=== PATIENT | female | born 2000 | race African-American/Black ===

== ENCOUNTER 2020-03-11 13:30 | Inpatient (IN) | payer OTHER, SELFPAY ==
[2020-03-11] MEDS ORDERED: Nalbuphine 10 MG/ML Syringe IVPUSH PRN (15:38)
[2020-03-11] MEDS ORDERED: Ondansetron 4 MG/2 ML SDV IVPUSH PRN (15:38)
[2020-03-11] MEDS ORDERED: Sodium Chloride 0.9% 10 ML Syringe FLUSH PRN (15:38)
[2020-03-11] MEDS ORDERED: Oxytocin/Lactated Ringers 10 UNIT/1,000 ML BAG IV SCH ×2 (15:45)
[2020-03-11] MEDS: Lactated Ringers 1,000 ML IV SCH ×4 (16:12→22:00)
--- NOTE | 2020-03-11 17:03 | PCM.LDHP ---
L&D History of Present Illness - General Date of Service: 03/11/20 Admit Problem/Dx: Patient Status Order with Admit Dx/Problem 03/11/20 14:56 Patient Status [ADT] Routine 03/11/20 15:38 Patient Status [ADT] Routine Admission Diagnosis/Problem Admission Diagnosis/Problem - History of Present Illness Introduction:: 19 year old at 38w4 here with SROM yesterday at 10 am. Clear fluid. No bleeding. No fevers. Contractions q 3 minutes but not feeling all of them. PNC with myself without complications. labs in chart. 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: Musculoskeletal History: Reports: Other (See Below) Other Musculoskeletal History: scoliosis Psychiatric History: Reports: Anxiety Social & Family History - Family History Family Medical History: Noncontributory - Tobacco Use Smoking Status *Q: Never Smoker Second Hand Smoke Exposure: No - Caffeine Use Caffeine Use: Reports: None - Recreational Drug Use Recreational Drug Use: Yes Recreational Drug Type: Reports: Marijuana/Hashish Recreational Drug Use Frequency: Socially H&P Review of Systems - Review of Systems: Review Of Systems: See Below General: Reports: No Symptoms HEENT: Reports: No Symptoms Pulmonary: Reports: No Symptoms Cardiovascular: Reports: No Symptoms Gastrointestinal: Reports: No Symptoms Genitourinary: Reports: No Symptoms Musculoskeletal: Reports: No Symptoms Skin: Reports: No Symptoms Psychiatric: Reports: No Symptoms Neurological: Reports: No Symptoms Hematologic/Lymphatic: Reports: No Symptoms Immunologic: Reports: No Symptoms L&D Exam - Exam Exam: See Below - Vital Signs Vital Signs: Last Vital Signs Temp 36.5 C 03/11/20 14:56 Pulse 79 03/11/20 14:56 Resp 14 03/11/20 14:56 BP 105/65 03/11/20 14:56 Pulse Ox 98 03/11/20 14:56 Weight: 63.957 kg - OB Specific Fundal Height In cm: 38 Contraction Intensity: Mild to Moderate Movement: Active Heart Tones: Present Heart Tones per Min: 145 Heart Rate (FHR) Variability: Moderate (6-25 bmp) Presentation: Vertex - Swain Score Swain Score Cervix Position: Midposition Swain Score Consistency: Soft Swain Score Effacement: 51-70% Swain Score Dilation: 1-2 cm Swain Score Infant's Station: -2 Swain Score Total: 7 - Exam General: Alert, Oriented HEENT: PERRLA, Conjunctiva Clear, EACs Clear, EOMI, Hearing Intact, Mucosa Moist & [place], Nares Patent, Normal Nasal Septum, Posterior Pharynx Clear, TMs Clear Neck: Supple, Trachea Midline Lungs: Clear to Auscultation, Normal Respiratory Effort Cardiovascular: Regular Rate, Regular Rhythm GI/Abdominal Exam: Normal Bowel Sounds, Soft, Non-Tender, No Organomegaly, No Distention, No Abnormal Bruit, No Mass, Pelvis Stable Back Exam: Normal Inspection, Full Range of Motion Extremities: Normal Inspection, Normal Range of Motion, Non-Tender, No Pedal Edema, Normal Capillary Refill Skin: Warm, Dry, Intact Neurological: Cranial Nerves Intact, Reflexes Equal Bilateral Psychiatric: Alert, Normal Affect, Normal Mood - Patient Data Lab Results Last 24 hrs: Laboratory Results - last 24 hr 03/11/20 03/11/20 03/11/20 Range/Units 14:40 14:40 16:04 WBC 24.48 H (3.98-10.04) K/mm3 RBC 4.83 (3.98-5.22) M/mm3 Hgb 14.1 (11.2-15.7) gm/dl Hct 41.8 (34.1-44.9) % MCV 86.5 (79.4-94.8) fl MCH 29.2 (25.6-32.2) pg MCHC 33.7 (32.2-35.5) g/dl RDW Std Deviation 41.1 (36.4-46.3) fL Plt Count 226 (182-369) K/mm3 MPV 10.2 (9.4-12.3) fl Neut % (Auto) 87.1 H (34.0-71.1) % Lymph % (Auto) 6.3 L (19.3-51.7) % [place] % (Auto) 5.9 (4.7-12.5) % Eos % (Auto) 0.1 L (0.7-5.8) Baso % (Auto) 0.2 (0.1-1.2) % Neut # (Auto) 21.34 H (1.56-6.13) K/mm3 Lymph # (Auto) 1.55 (1.18-3.74) K/mm3 [place] # (Auto) 1.44 H (0.24-0.36) K/mm3 Eos # (Auto) 0.02 L (0.04-0.36) K/mm3 Baso # (Auto) 0.04 (0.01-0.08) K/mm3 Urine Color Yellow (Yellow) Urine Appearance Slt cloudy H (Clear) Urine pH 6.0 (5.0-8.0) Ur Specific [place] > or = 1.030 (1.005-1.030) Urine Protein Trace H (Negative) Urine Glucose (UA) Negative (Negative) Urine Ketones Negative (Negative) Urine Occult Blood 2+ H (Negative) Urine Nitrite Negative (Negative) Urine Bilirubin Negative (Negative) Urine Urobilinogen 1.0 (0.2-1.0) Ur Leukocyte Esterase Trace H (Negative) Urine RBC 10-20 H (0-5) /hpf Urine WBC 5-10 H (0-5) /hpf Ur Squamous Epith Cells 10-20 H (0-5) /hpf Urine Bacteria Few (FEW) /hpf Urine Mucus Moderate H (FEW) /hpf Urine Opiates Screen Negative (KLGYIM=384) Ur Buprenorphine Scrn Negative (CUTOFF=10) Ur Oxycodone Screen Negative (UNY6YV=979) Urine Methadone Screen Negative (GBVCFA=104) Ur Propoxyphene Screen Negative (QOWTKQ=266) Ur Barbiturates Screen Negative (TEADVA=914) Ur Tricyclics Screen Negative (IOOBLV=856) Ur Phencyclidine Scrn Negative (CUTOFF=25) Ur Amphetamine Screen Negative (BEXLXG=045) U Methamphetamines Scrn Negative (ITXSLM=365) U Benzodiazepines Scrn Negative (KDRSTT=620) U Cocaine Metab Screen Negative (RNKPOY=919) U Marijuana (THC) Screen Presumptive positive H (CUTOFF=50) Result Diagrams: 03/11/20 16:04 Problem List Initiated/Reviewed/Updated: Yes Orders Last 24hrs: Active Orders 24 hr Category Date Time Status Patient Status [ADT] Routine ADT 03/11/20 14:56 Active Patient Status [ADT] Routine ADT 03/11/20 15:38 Active Activity as Tolerated [RC] PFP Care 03/11/20 15:38 Active Communication Order [RC] ASDIRECTED Care 03/11/20 15:38 Active Heart Tones [RC] ASDIRECTED Care 03/11/20 15:39 Active Non Stress Test [RC] PER UNIT ROUTINE Care 03/11/20 14:56 Active Notify Provider [RC] PFP Care 03/11/20 15:38 Active Notify Provider [RC] PRN Care 03/11/20 15:38 Active Peripheral IV Care [RC] . DIRECTED Care 03/11/20 15:39 Active Vital Signs [RC] PER UNIT ROUTINE Care 03/11/20 14:56 Active Vital Signs [RC] PER UNIT ROUTINE Care 03/11/20 15:38 Active Regular Diet [DIET] Diet 03/11/20 Breakfast Active BLOOD BANK HOLD SPECIMEN [BBK] Stat Lab 03/11/20 15:38 Ordered CBC WITH AUTO DIFF [HEME] Stat Lab 03/11/20 16:04 Results RAPID PLASMA REAGIN,RPR [CHEM] Routine Lab 03/11/20 16:04 Received Lactated Ringers [Ringers, Lactated] 1,000 ml Med 03/11/20 15:45 Active IV ASDIRECTED Nalbuphine [Nubain] Med 03/11/20 15:38 Active 10 mg IVPUSH Q2H PRN Ondansetron [Zofran] Med 03/11/20 15:38 Active 4 mg IVPUSH Q4H PRN Oxytocin/Lactated Ringers [Pitocin in LR 10 Units/1,000 Med 03/11/20 15:45 Active ML] 10 unit in 1,000 ml IV .CONTINUOUS Oxytocin/Lactated Ringers [Pitocin in LR 10 Units/1,000 Med 03/11/20 15:45 Act ashly ML] 10 unit in 1,000 ml IV TITRATE Sodium Chloride 0.9% [Saline Flush] Med 03/11/20 15:38 Active 10 ml FLUSH ASDIRECTED PRN Electronic Heart Tones Ext w TOCO [WOMSER] Oth 03/11/20 15:38 Ordered Routine Electronic Heart Tones Internal [WOMSER] Per Unit Oth 03/11/20 15:38 Ordered Routine Peripheral IV Insertion Adult [OM.PC] Routine Oth 03/11/20 15:38 Ordered Resuscitation Status Routine Resus Stat 03/11/20 14:56 Ordered Medication Orders Lactated Ringer's (Ringers, Lactated) 1,000 mls @ 100 mls/hr IV ASDIRECTED MELISSA Last Admin: 03/11/20 16:12 Dose: 100 mls/hr Documented by: DECKAMB Oxytocin/Lactated Ringer's (Pitocin In Lr 10 Units/1,000 Ml) 10 unit in 1,000 mls @ 12 mls/hr IV TITRATE MELISSA; Protocol Last Admin: 03/11/20 16:12 Dose: 2 munits/min, 12 mls/hr Documented by: DECKAMB Oxytocin/Lactated Ringer's (Pitocin In Lr 10 Units/1,000 Ml) 10 unit in 1,000 mls @ 500 mls/hr IV .CONTINUOUS MELISSA Nalbuphine HCl (Nubain) 10 mg IVPUSH Q2H PRN PRN Reason: Pain Ondansetron HCl (Zofran) 4 mg IVPUSH Q4H PRN PRN Reason: Nausea/Vomiting Sodium Chloride (Saline Flush) 10 ml FLUSH ASDIRECTED PRN PRN Reason: Keep Vein Open Assessment/Plan Comment:: Term prolonged SROM Augment with pitocin. Elevated WBC. No other symptoms. Watch for s/s of chorio.
[2020-03-11] MEDS ORDERED: fentaNYL 100 MCG/2 ML SDV ONE (17:25)
[2020-03-11] MEDS ORDERED: ePHEDrine 50 MG/ML SDV IVPUSH PRN (17:36)
[2020-03-11] MEDS ORDERED: diphenhydrAMINE 50 MG/ML SDV IVPUSH PRN (17:36)
[2020-03-11] MEDS ORDERED: fentaNYL 100 MCG/2 ML SDV EPIDUR PRN (17:36)
[2020-03-11] MEDS ORDERED: Bupivacaine/fentaNYL/NS 100 ML Bag EPIDUR PRN (17:36)
--- NOTE | 2020-03-11 18:05 | PCM.PREANE ---
Preanesthetic Assessment - Procedure Proposed Procedure: marie - Anesthesia/Transfusion/Family Hx Anesthesia History: Prior Anesthesia Without Reaction Family History of Anesthesia Reaction: No Transfusion History: No Prior Transfusion(s) - Review of Systems General: No Symptoms Pulmonary: No Symptoms Cardiovascular: No Symptoms Gastrointestinal: Vomiting (today) Neurological: No Symptoms Other: Reports: None - Physical Assessment Vital Signs: Last Vital Signs Temp 97.7 F 03/11/20 14:56 Pulse 79 03/11/20 14:56 Resp 14 03/11/20 14:56 BP 105/65 03/11/20 14:56 Pulse Ox 98 03/11/20 14:56 Height: 5 ft 3 in Weight: 63.957 kg ASA Class: 2 Mental Status: Alert & Oriented x3 Airway Class: Mallampati = 1 Dentition: Reports: Normal Dentition Thyro-Mental Finger Breadths: 3 Mouth Opening Finger Breadths: 3 ROM/Head Extension: Full Lungs: Clear to Auscultation, Normal Respiratory Effort Cardiovascular: Regular Rate, Regular Rhythm, No Murmurs - Lab Values: Laboratory Last Values WBC 24.48 K/mm3 (3.98-10.04) H 03/11/20 16:04 RBC 4.83 M/mm3 (3.98-5.22) 03/11/20 16:04 Hgb 14.1 gm/dl (11.2-15.7) 03/11/20 16:04 Hct 41.8 % (34.1-44.9) 03/11/20 16:04 MCV 86.5 fl (79.4-94.8) 03/11/20 16:04 MCH 29.2 pg (25.6-32.2) 03/11/20 16:04 MCHC 33.7 g/dl (32.2-35.5) 03/11/20 16:04 RDW Std Deviation 41.1 fL (36.4-46.3) 03/11/20 16:04 Plt Count 226 K/mm3 (182-369) 03/11/20 16:04 MPV 10.2 fl (9.4-12.3) 03/11/20 16:04 Neut % (Auto) 87.1 % (34.0-71.1) H 03/11/20 16:04 Lymph % (Auto) 6.3 % (19.3-51.7) L 03/11/20 16:04 [place] % (Auto) 5.9 % (4.7-12.5) 03/11/20 16:04 Eos % (Auto) 0.1 (0.7-5.8) L 03/11/20 16:04 Baso % (Auto) 0.2 % (0.1-1.2) 03/11/20 16:04 Neut # (Auto) 21.34 K/mm3 (1.56-6.13) H 03/11/20 16:04 Lymph # (Auto) 1.55 K/mm3 (1.18-3.74) 03/11/20 16:04 [place] # (Auto) 1.44 K/mm3 (0.24-0.36) H 03/11/20 16:04 Eos # (Auto) 0.02 K/mm3 (0.04-0.36) L 03/11/20 16:04 Baso # (Auto) 0.04 K/mm3 (0.01-0.08) 03/11/20 16:04 Manual Slide Review Normal smear 03/11/20 16:04 Urine Color Yellow (Yellow) 03/11/20 14:40 Urine Appearance Slt cloudy (Clear) H 03/11/20 14:40 Urine pH 6.0 (5.0-8.0) 03/11/20 14:40 Ur Specific [place] > or = 1.030 (1.005-1.030) 03/11/20 14:40 Urine Protein Trace (Negative) H 03/11/20 14:40 Urine Glucose (UA) Negative (Negative) 03/11/20 14:40 Urine Ketones Negative (Negative) 03/11/20 14:40 Urine Occult Blood 2+ (Negative) H 03/11/20 14:40 Urine Nitrite Negative (Negative) 03/11/20 14:40 Urine Bilirubin Negative (Negative) 03/11/20 14:40 Urine Urobilinogen 1.0 (0.2-1.0) 03/11/20 14:40 Ur Leukocyte Esterase Trace (Negative) H 03/11/20 14:40 Urine RBC 10-20 /hpf (0-5) H 03/11/20 14:40 Urine WBC 5-10 /hpf (0-5) H 03/11/20 14:40 Ur Squamous Epith Cells 10-20 /hpf (0-5) H 03/11/20 14:40 Urine Bacteria Few /hpf (FEW) 03/11/20 14:40 Urine Mucus Moderate /hpf (FEW) H 03/11/20 14:40 Urine Opiates Screen Negative (FICRDZ=861) 03/11/20 14:40 Ur Buprenorphine Scrn Negative (CUTOFF=10) 03/11/20 14:40 Ur Oxycodone Screen Negative (ECD6DN=177) 03/11/20 14:40 Urine Methadone Screen Negative (AQLQUD=381) 03/11/20 14:40 Ur Propoxyphene Screen Negative (PAALSA=453) 03/11/20 14:40 Ur Barbiturates Screen Negative (XPPIYI=631) 03/11/20 14:40 Ur Tricyclics Screen Negative (DTFXCK=063) 03/11/20 14:40 Ur Phencyclidine Scrn Negative (CUTOFF=25) 03/11/20 14:40 Ur Amphetamine Screen Negative (XIJWVV=109) 03/11/20 14:40 U Methamphetamines Scrn Negative (RSZLAF=674) 03/11/20 14:40 U Benzodiazepines Scrn Negative (CJYRJE=614) 03/11/20 14:40 U Cocaine Metab Screen Negative (HPBUPZ=561) 03/11/20 14:40 U Marijuana (THC) Screen Presumptive positive (CUTOFF=50) H 03/11/20 14:40 SARS-CoV-2 RNA (RT-PCR) Negative (NEGATIVE) 03/11/20 17:05 - Allergies Allergies/Adverse Reactions: Allergies Allergy/AdvReac Type Severity Reaction Status Date / Time clarithromycin [From Biaxin] Allergy Other Verified 03/11/20 14:55 pineapple Allergy Rash Verified 03/11/20 14:55 - Blood Blood Available: No - Acknowledgements Anesthesia Type Planned: Epidural Pt an Appropriate Candidate for the Planned Anesthesia: Yes Alternatives and Risks of Anesthesia Discussed w Pt/Guardian: Yes Pt/Guardian Understands and Agrees with Anesthesia Plan: Yes PreAnesthesia Questionnaire - Past Health History Medical/Surgical History: Denies Medical/Surgical History Cardiovascular History: Reports: None Respiratory History: Reports: Asthma (as a child) 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 Para: 0 Musculoskeletal History: Reports: Other (See Below) Other Musculoskeletal History: scoliosis Psychiatric History: Reports: Anxiety Oncologic (Cancer) History: Reports: None - SUBSTANCE USE Smoking Status *Q: Former Smoker Tobacco Use Within Last Twelve Months: Cigarettes, Other (See Below) (marijuana) Second Hand Smoke Exposure: No Recreational Drug Use History: Yes Recreational Drug Type: Reports: Marijuana/Hashish - HOME MEDS Home Medications: Home Meds Pnv No.95/Ferrous Fum/Folic AC [ Tablet] 1 tab PO DAILY 03/11/20 [History] - CURRENT (IN HOUSE) MEDS Current Meds: Current Medications Diphenhydramine HCl (Benadryl) 25 mg IVPUSH Q6H PRN PRN Reason: pruritis Ephedrine Sulfate (Ephedrine Sulfate) 5 mg IVPUSH ASDIRECTED PRN PRN Reason: Hypotension Fentanyl (Sublimaze) 100 mcg EPIDUR Q3H PRN PRN Reason: Pain Fentanyl/Bupivacaine HCl (Fentanyl/Bupivacaine/Ns 2 Mcg-0.125% 100 Ml) 100 ml EPIDUR ASDIRECTED PRN PRN Reason: Pain Lactated Ringer's (Ringers, Lactated) 1,000 mls @ 100 mls/hr IV ASDIRECTED MELISSA Last Admin: 03/11/20 17:30 Dose: 999 mls/hr Documented by: Oxytocin/Lactated Ringer's (Pitocin In Lr 10 Units/1,000 Ml) 10 unit in 1,000 mls @ 12 mls/hr IV TITRATE MELISSA; Protocol Last Titration: 03/11/20 17:05 Dose: 0 munits/min, 0 mls/hr Documented by: Oxytocin/Lactated Ringer's (Pitocin In Lr 10 Units/1,000 Ml) 10 unit in 1,000 mls @ 500 mls/hr IV .CONTINUOUS MELISSA Nalbuphine HCl (Nubain) 10 mg IVPUSH Q2H PRN PRN Reason: Pain Last Admin: 03/11/20 17:35 Dose: 10 mg Documented by: Ondansetron HCl (Zofran) 4 mg IVPUSH Q4H PRN PRN Reason: Nausea/Vomiting Sodium Chloride (Saline Flush) 10 ml FLUSH ASDIRECTED PRN PRN Reason: Keep Vein Open Discontinued Medications Fentanyl (Sublimaze) Confirm Administered Dose 100 mcg .ROUTE .STK-MED ONE Stop: 03/11/20 17:26 Last Admin: 03/11/20 17:31 Dose: 100 mcg Documented by:
--- NOTE | 2020-03-11 21:29 | PCM.PNLD ---
Labor Progress Note - VS & Meds Vital Signs: Last Vital Signs Temp 36.5 C 03/11/20 14:56 Pulse 79 03/11/20 14:56 Resp 14 03/11/20 14:56 BP 105/65 03/11/20 14:56 Pulse Ox 98 03/11/20 14:56 Active Medications: Current Medications Diphenhydramine HCl (Benadryl) 25 mg IVPUSH Q6H PRN PRN Reason: pruritis Ephedrine Sulfate (Ephedrine Sulfate) 5 mg IVPUSH ASDIRECTED PRN PRN Reason: Hypotension Fentanyl (Sublimaze) 100 mcg EPIDUR Q3H PRN PRN Reason: Pain Fentanyl/Bupivacaine HCl (Fentanyl/Bupivacaine/Ns 2 Mcg-0.125% 100 Ml) 100 ml EPIDUR ASDIRECTED PRN PRN Reason: Pain Last Admin: 03/11/20 18:23 Dose: 100 ml Documented by: Lactated Ringer's (Ringers, Lactated) 1,000 mls @ 100 mls/hr IV ASDIRECTED MELISSA Last Admin: 03/11/20 18:10 Dose: 500 mls/hr Documented by: Oxytocin/Lactated Ringer's (Pitocin In Lr 10 Units/1,000 Ml) 10 unit in 1,000 mls @ 12 mls/hr IV TITRATE MELISSA; Protocol Last Titration: 03/11/20 20:25 Dose: 6 munits/min, 36 mls/hr Documented by: Oxytocin/Lactated Ringer's (Pitocin In Lr 10 Units/1,000 Ml) 10 unit in 1,000 mls @ 500 mls/hr IV .CONTINUOUS MELISSA Nalbuphine HCl (Nubain) 10 mg IVPUSH Q2H PRN PRN Reason: Pain Last Admin: 03/11/20 17:35 Dose: 10 mg Documented by: Ondansetron HCl (Zofran) 4 mg IVPUSH Q4H PRN PRN Reason: Nausea/Vomiting Sodium Chloride (Saline Flush) 10 ml FLUSH ASDIRECTED PRN PRN Reason: Keep Vein Open Discontinued Medications Fentanyl (Sublimaze) Confirm Administered Dose 100 mcg .ROUTE .STK-MED ONE Stop: 03/11/20 17:26 Last Admin: 03/11/20 17:31 Dose: 100 mcg Documented by: - Uterine Contractions Uterine Monitoring Mode: External [place] Contraction Frequency (min): 1-3 Contraction Duration (sec): 30-60 Contraction Intensity: Moderate to Strong Uterine Resting Tone: Soft - Monitoring Monitor Mode: Doppler/Auscultation Heart Rate (FHR) Baseline: 130 Heart Rate (FHR) Per Doppler: 130 Heart Rate (FHR) Variability: Moderate (6-25 bmp) Accelerations: Present, 15x15 Decelerations: Early, Intermittent (<50% x 20 min) - Vaginal Exam Dilation (cm): 4 Effacement (Percent): 90 Station: -2 Cervical Position: Anterior Sterile Vaginal Exam Performed By: Manav Perdomo - Labor Progress (Free Text) Labor Progress: Patient making progress at this time. Patient feeling well with epidural in place Continue to monitor vitals closely Patient may use Zofran as needed for nausea and vomiting Anticipate vaginal delivery unless otherwise indicated Manav Perdomo MD 9:28 PM 03/11/2020
[2020-03-12] MEDS ORDERED: Bupivacaine 0.25% 10 ML SDV ONE
--- NOTE | 2020-03-12 02:43 | PCM.DEL ---
L & D Note - General Info Date of Service: 03/12/20 Mother's Due Date: 03/21/20 - Delivery Note Labor: Spontaneous, Augmented by Oxytocin Delivery Method: Spontaneous Vaginal Delivery-Single Presentation: Right Occiput Anterior (ERIK) Nuchal Cord: Present (x1), Reduced Prep: Povidone-Iodine (Betadine Anesthesia Type: Epidural Amniotic Fluid Description: Clear Laceration: Labial (Right first degree repaired with 4-0 Vicryl), Perineal (Second-degree midline, repaired with 3-0 Vicryl) Suture type: Vicryl Suture size: 3-0 Placenta: Intact, Spontaneous Cord: 3 Vessels Estimated Blood Loss: 300 Resuscitation Needed: Yes [place]: Bulb Syringe, Stimulated, Warmed, [place] Used Provider: Manav Perdomo Score 1 min: 8 Score 5 min: 9 Second Stage Interventions: Reports: Pushing Effectively, Pushing, Stirrups/Leg Supports Delivery Comments (Free Text/Narrative):: Stage I: Faustina Garza was admitted for spontaneous rupture membranes with clear fluid. She thinks that she may have had spontaneous rupture membranes on 03/10/2020 at around 10 AM but did not present to labor and delivery until 03/11/2020. On admission her cervix was dilated to 2 cm. She was GBS negative. She was started on Pitocin for augmentation of labor. She was given an epidural for anesthesia. She progressed to complete and pushing. Stage II: On 03/12/2020 she had a normal vaginal delivery of a live male at 01:55. Apgars of 8 & 9. Weight of 2540 g (5 lbs 9.6 oz). Length of 19 inches. There was a single nuchal cord that was reduced prior to delivery of the . Infant was delivered in ERIK position. The cord was doubly clamped and cut by father the . was placed on mother's abdomen. Stage III: She had a spontaneous delivery of an intact placenta in Sly presentation. Three vessel cord. She was given pitocin and fundal massage. She had a second-degree midline perineal laceration that was repaired with 3-0 Vicryl. She had a first-degree right labial laceration that was repaired with 4-0 Vicryl. Mom and baby were stable to recovery. EBL of 300 mL. Manav Perdomo MD 2:39 AM 03/12/2020 - General Info Date of Service: 03/12/20 - Patient Data Vitals - Most Recent: Last Vital Signs Temp 36.5 C 03/11/20 14:56 Pulse 79 03/11/20 14:56 Resp 14 03/11/20 14:56 BP 105/65 03/11/20 14:56 Pulse Ox 98 03/11/20 14:56 Weight - Most Recent: 63.957 kg Lab Results Last 24 Hours: Laboratory Results - last 24 hr 03/11/20 03/11/20 03/11/20 Range/Units 14:40 14:40 16:04 WBC (3.98-10.04) K/mm3 RBC (3.98-5.22) M/mm3 Hgb (11.2-15.7) gm/dl Hct (34.1-44.9) % MCV (79.4-94.8) fl MCH (25.6-32.2) pg MCHC (32.2-35.5) g/dl RDW Std Deviation (36.4-46.3) fL Plt Count (182-369) K/mm3 MPV (9.4-12.3) fl Neut % (Auto) (34.0-71.1) % Lymph % (Auto) (19.3-51.7) % [place] % (Auto) (4.7-12.5) % Eos % (Auto) (0.7-5.8) Baso % (Auto) (0.1-1.2) % Neut # (Auto) (1.56-6.13) K/mm3 Lymph # (Auto) (1.18-3.74) K/mm3 [place] # (Auto) (0.24-0.36) K/mm3 Eos # (Auto) (0.04-0.36) K/mm3 Baso # (Auto) (0.01-0.08) K/mm3 Manual Slide Review Urine Color Yellow (Yellow) Urine Appearance Slt cloudy H (Clear) Urine pH 6.0 (5.0-8.0) Ur Specific [place] > or = 1.030 (1.005-1.030) Urine Protein Trace H (Negative) Urine Glucose (UA) Negative (Negative) Urine Ketones Negative (Negative) Urine Occult Blood 2+ H (Negative) Urine Nitrite Negative (Negative) Urine Bilirubin Negative (Negative) Urine Urobilinogen 1.0 (0.2-1.0) Ur Leukocyte Esterase Trace H (Negative) Urine RBC 10-20 H (0-5) /hpf Urine WBC 5-10 H (0-5) /hpf Ur Squamous Epith Cells 10-20 H (0-5) /hpf Urine Bacteria Few (FEW) /hpf Urine Mucus Moderate H (FEW) /hpf Urine Opiates Screen Negative (VRGDYP=483) Ur Buprenorphine Scrn Negative (CUTOFF=10) Ur Oxycodone Screen Negative (ERS8ZW=332) Urine Methadone Screen Negative (OCMUYY=955) Ur Propoxyphene Screen Negative (BMBYHC=943) Ur Barbiturates Screen Negative (TBIHZR=421) Ur Tricyclics Screen Negative (BVWNHA=193) Ur Phencyclidine Scrn Negative (CUTOFF=25) Ur Amphetamine Screen Negative (KLJQIL=215) U Methamphetamines Scrn Negative (LZDSZW=818) U Benzodiazepines Scrn Negative (LATXIP=306) U Cocaine Metab Screen Negative (DORAAJ=062) U Marijuana (THC) Screen Presumptive positive H (CUTOFF=50) RPR Non-reactive (NONREACTIVE) SARS-CoV-2 RNA (RT-PCR) (NEGATIVE) 03/11/20 03/11/20 Range/Units 16:04 17:05 WBC 24.48 H (3.98-10.04) K/mm3 RBC 4.83 (3.98-5.22) M/mm3 Hgb 14.1 (11.2-15.7) gm/dl Hct 41.8 (34.1-44.9) % MCV 86.5 (79.4-94.8) fl MCH 29.2 (25.6-32.2) pg MCHC 33.7 (32.2-35.5) g/dl RDW Std Deviation 41.1 (36.4-46.3) fL Plt Count 226 (182-369) K/mm3 MPV 10.2 (9.4-12.3) fl Neut % (Auto) 87.1 H (34.0-71.1) % Lymph % (Auto) 6.3 L (19.3-51.7) % [place] % (Auto) 5.9 (4.7-12.5) % Eos % (Auto) 0.1 L (0.7-5.8) Baso % (Auto) 0.2 (0.1-1.2) % Neut # (Auto) 21.34 H (1.56-6.13) K/mm3 Lymph # (Auto) 1.55 (1.18-3.74) K/mm3 [place] # (Auto) 1.44 H (0.24-0.36) K/mm3 Eos # (Auto) 0.02 L (0.04-0.36) K/mm3 Baso # (Auto) 0.04 (0.01-0.08) K/mm3 Manual Slide Review Normal smear Urine Color (Yellow) Urine Appearance (Clear) Urine pH (5.0-8.0) Ur Specific [place] (1.005-1.030) Urine Protein (Negative) Urine Glucose (UA) (Negative) Urine Ketones (Negative) Urine Occult Blood (Negative) Urine Nitrite (Negative) Urine Bilirubin (Negative) Urine Urobilinogen (0.2-1.0) Ur Leukocyte Esterase (Negative) Urine RBC (0-5) /hpf Urine WBC (0-5) /hpf Ur Squamous Epith Cells (0-5) /hpf Urine Bacteria (FEW) /hpf Urine Mucus (FEW) /hpf Urine Opiates Screen (KJTMKE=246) Ur Buprenorphine Scrn (CUTOFF=10) Ur Oxycodone Screen (WPW6FC=539) Urine Methadone Screen (QQFBFY=027) Ur Propoxyphene Screen (OLUAZP=229) Ur Barbiturates Screen (JRTMTL=643) Ur Tricyclics Screen (NUJVUZ=717) Ur Phencyclidine Scrn (CUTOFF=25) Ur Amphetamine Screen (AVDRAT=792) U Methamphetamines Scrn (IYTJZT=414) U Benzodiazepines Scrn (NVPYCR=364) U Cocaine Metab Screen (GJCFFZ=137) U Marijuana (THC) Screen (CUTOFF=50) RPR (NONREACTIVE) SARS-CoV-2 RNA (RT-PCR) Negative (NEGATIVE) Med Orders - Current: Current Medications Diphenhydramine HCl (Benadryl) 25 mg IVPUSH Q6H PRN PRN Reason: pruritis Ephedrine Sulfate (Ephedrine Sulfate) 5 mg IVPUSH ASDIRECTED PRN PRN Reason: Hypotension Fentanyl (Sublimaze) 100 mcg EPIDUR Q3H PRN PRN Reason: Pain Fentanyl/Bupivacaine HCl (Fentanyl/Bupivacaine/Ns 2 Mcg-0.125% 100 Ml) 100 ml EPIDUR ASDIRECTED PRN PRN Reason: Pain Last Admin: 03/11/20 18:23 Dose: 100 ml Documented by: Lactated Ringer's (Ringers, Lactated) 1,000 mls @ 100 mls/hr IV ASDIRECTED MELISSA Last Infusion: 03/11/20 22:18 Dose: 100 mls/hr Documented by: Oxytocin/Lactated Ringer's (Pitocin In Lr 10 Units/1,000 Ml) 10 unit in 1,000 mls @ 12 mls/hr IV TITRATE MELISSA; Protocol Last Titration: 03/11/20 21:25 Dose: 8 munits/min, 48 mls/hr Documented by: Oxytocin/Lactated Ringer's (Pitocin In Lr 10 Units/1,000 Ml) 10 unit in 1,000 mls @ 500 mls/hr IV .CONTINUOUS MELISSA Nalbuphine HCl (Nubain) 10 mg IVPUSH Q2H PRN PRN Reason: Pain Last Admin: 03/11/20 17:35 Dose: 10 mg Documented by: Ondansetron HCl (Zofran) 4 mg IVPUSH Q4H PRN PRN Reason: Nausea/Vomiting Last Admin: 03/11/20 22:09 Dose: 4 mg Documented by: Sodium Chloride (Saline Flush) 10 ml FLUSH ASDIRECTED PRN PRN Reason: Keep Vein Open Discontinued Medications Fentanyl (Sublimaze) Confirm Administered Dose 100 mcg .ROUTE .STK-MED ONE Stop: 03/11/20 17:26 Last Admin: 03/11/20 17:31 Dose: 100 mcg Documented by: - Problem List & Annotations (1) 38 weeks gestation of SNOMED Code(s): 60908734 Code(s): Z3A.38 - 38 WEEKS GESTATION OF Status: Acute Current Visit: Yes (2) Marijuana use SNOMED Code(s): 719495811 Code(s): F12.90 - CANNABIS USE, UNSPECIFIED, UNCOMPLICATED Status: Acute Current Visit: Yes (3) Vaginal delivery SNOMED Code(s): 933818465 Code(s): O80 - ENCOUNTER FOR FULL-TERM UNCOMPLICATED DELIVERY Status: Acute Current Visit: Yes (4) Second degree perineal laceration during delivery SNOMED Code(s): 3515001 Code(s): O70.1 - SECOND DEGREE PERINEAL LACERATION DURING DELIVERY Status: Acute Current Visit: Yes - Problem List Review Problem List Initiated/Reviewed/Updated: Yes - My Orders Last 24 Hours: My Active Orders 03/12/20 02:31 Patient Status Manage Transfer [TRANSFER] Routine - Plan Plan:: Admit to inpatient following normal spontaneous vaginal delivery Continue Pitocin per unit protocol following delivery of placenta and lactated Ringer's until tolerating regular diet Regular diet Vitals per unit routine Ibuprofen and Tylenol for pain control Assist with breast-feeding as needed Continue to monitor lochia Anticipate discharge home on day #1 or #2 depending on status Manav Perdomo MD 2:39 AM 03/12/2020
[2020-03-12] MEDS ORDERED: Witch Hazel Medicated Pads 40/Jar TOP PRN (04:16)
[2020-03-12] MEDS ORDERED: Acetaminophen 325 MG Tab PO PRN (04:16)
[2020-03-12] MEDS ORDERED: Docusate Sodium 100 MG Cap PO PRN (04:16)
[2020-03-12] MEDS ORDERED: Hydrocortisone Acetate 25 MG Supp RECTAL PRN (04:16)
[2020-03-12] MEDS ORDERED: Oxytocin/Lactated Ringers 10 UNIT/1,000 ML BAG IV SCH (04:16)
[2020-03-12] MEDS ORDERED: Benzocaine/Menthol 20%-0.5% Spray 56 GM Canister TOP PRN (04:16)
[2020-03-12] MEDS ORDERED: Magnesium Hydroxide 400 MG/5 ML Susp 30 ML Cup PO PRN (04:16)
[2020-03-12] MEDS: Ibuprofen 600 MG Tab PO PRN ×2 (05:35→16:52)
--- NOTE | 2020-03-12 07:25 | PCM48HPAN ---
Post Anesthesia Note - EVALUATION WITHIN 48HRS OF ANESTHETIC Vital Signs in Normal Range: Yes Patient Participated in Evaluation: Yes Respiratory Function Stable: Yes Airway Patent: Yes Cardiovascular Function Stable: Yes Hydration Status Stable: Yes Pain Control Satisfactory: Yes Nausea and Vomiting Control Satisfactory: Yes Mental Status Recovered: Yes Vital Signs: Last Vital Signs Temp 36.5 C 03/11/20 14:56 Pulse 79 03/11/20 14:56 Resp 14 03/11/20 14:56 BP 105/65 03/11/20 14:56 Pulse Ox 98 03/11/20 14:56
[2020-03-12] MEDS: Prenatal Multivitamin with Calcium/Folic Acid/Iron Tab PO SCH (09:02)
[2020-03-13] MEDS: Ibuprofen 600 MG Tab PO PRN (04:50)
[2020-03-13] MEDS ORDERED: Measles, Mumps & Rubella Vaccine 0.5 ML SDV SUBCUT ONE (09:49)
--- NOTE | 2020-03-13 10:08 | PCM.SN.2 ---
- Free Text/Narrative Note: Post Progress Note PPD #1 Subjective: Doing well overall. Ambulating without difficulty. Lochia minimal. Voiding without difficulty. Tolerating regular diet without nausea or vomiting. Pain controlled with oral medications. Breast-feeding with minimal difficulty. Objective: Vitals: Vital Signs - 24 hr 03/12/20 03/12/20 03/13/20 14:11 20:35 04:07 Temperature 36.5 C 36.9 C 36.6 C Pulse, 78 77 79 Peripheral Respiratory 16 14 14 Rate Blood Pressure 109/71 105/67 100/81 O2 Sat by Pulse 99 98 93 L Oximetry 03/13/20 09:09 Temperature 36.2 C Pulse, 68 Peripheral Respiratory 16 Rate Blood Pressure 114/69 O2 Sat by Pulse 100 Oximetry Physical Exam General: Alert and oriented, no acute distress Lungs: Clear to auscultation bilaterally Heart: Regular rate and rhythm Abdomen: Soft, minimal appropriate tenderness, non-distended, fundus midline, nontender, and 1 fingerbreadth below the umbilicus Extremities: No edema Laboratory Tests 03/11/20 03/11/20 03/11/20 Range/Units 14:40 14:40 16:04 WBC (3.98-10.04) K/mm3 RBC (3.98-5.22) M/mm3 Hgb (11.2-15.7) gm/dl Hct (34.1-44.9) % MCV (79.4-94.8) fl MCH (25.6-32.2) pg MCHC (32.2-35.5) g/dl RDW Std Deviation (36.4-46.3) fL Plt Count (182-369) K/mm3 MPV (9.4-12.3) fl Neut % (Auto) (34.0-71.1) % Lymph % (Auto) (19.3-51.7) % [place] % (Auto) (4.7-12.5) % Eos % (Auto) (0.7-5.8) Baso % (Auto) (0.1-1.2) % Neut # (Auto) (1.56-6.13) K/mm3 Lymph # (Auto) (1.18-3.74) K/mm3 [place] # (Auto) (0.24-0.36) K/mm3 Eos # (Auto) (0.04-0.36) K/mm3 Baso # (Auto) (0.01-0.08) K/mm3 Manual Slide Review Urine Color Yellow (Yellow) Urine Appearance Slt cloudy H (Clear) Urine pH 6.0 (5.0-8.0) Ur Specific [place] > or = 1.030 (1.005-1.030) Urine Protein Trace H (Negative) Urine Glucose (UA) Negative (Negative) Urine Ketones Negative (Negative) Urine Occult Blood 2+ H (Negative) Urine Nitrite Negative (Negative) Urine Bilirubin Negative (Negative) Urine Urobilinogen 1.0 (0.2-1.0) Ur Leukocyte Esterase Trace H (Negative) Urine RBC 10-20 H (0-5) /hpf Urine WBC 5-10 H (0-5) /hpf Ur Squamous Epith Cells 10-20 H (0-5) /hpf Urine Bacteria Few (FEW) /hpf Urine Mucus Moderate H (FEW) /hpf Urine Opiates Screen Negative (BFJPBP=309) Ur Buprenorphine Scrn Negative (CUTOFF=10) Ur Oxycodone Screen Negative (KBJ9YQ=807) Urine Methadone Screen Negative (QAIVDI=330) Ur Propoxyphene Screen Negative (LWBMXA=743) Ur Barbiturates Screen Negative (SWTDJJ=865) Ur Tricyclics Screen Negative (DCKTWO=039) Ur Phencyclidine Scrn Negative (CUTOFF=25) Ur Amphetamine Screen Negative (XNAYLR=538) U Methamphetamines Scrn Negative (GXDBAM=952) U Benzodiazepines Scrn Negative (DKMMSL=567) U Cocaine Metab Screen Negative (OLVYZU=730) U Marijuana (THC) Screen Presumptive positive H (CUTOFF=50) RPR Non-reactive (NONREACTIVE) SARS-CoV-2 RNA (RT-PCR) (NEGATIVE) 03/11/20 03/11/20 Range/Units 16:04 17:05 WBC 24.48 H (3.98-10.04) K/mm3 RBC 4.83 (3.98-5.22) M/mm3 Hgb 14.1 (11.2-15.7) gm/dl Hct 41.8 (34.1-44.9) % MCV 86.5 (79.4-94.8) fl MCH 29.2 (25.6-32.2) pg MCHC 33.7 (32.2-35.5) g/dl RDW Std Deviation 41.1 (36.4-46.3) fL Plt Count 226 (182-369) K/mm3 MPV 10.2 (9.4-12.3) fl Neut % (Auto) 87.1 H (34.0-71.1) % Lymph % (Auto) 6.3 L (19.3-51.7) % [place] % (Auto) 5.9 (4.7-12.5) % Eos % (Auto) 0.1 L (0.7-5.8) Baso % (Auto) 0.2 (0.1-1.2) % Neut # (Auto) 21.34 H (1.56-6.13) K/mm3 Lymph # (Auto) 1.55 (1.18-3.74) K/mm3 [place] # (Auto) 1.44 H (0.24-0.36) K/mm3 Eos # (Auto) 0.02 L (0.04-0.36) K/mm3 Baso # (Auto) 0.04 (0.01-0.08) K/mm3 Manual Slide Review Normal smear Urine Color (Yellow) Urine Appearance (Clear) Urine pH (5.0-8.0) Ur Specific [place] (1.005-1.030) Urine Protein (Negative) Urine Glucose (UA) (Negative) Urine Ketones (Negative) Urine Occult Blood (Negative) Urine Nitrite (Negative) Urine Bilirubin (Negative) Urine Urobilinogen (0.2-1.0) Ur Leukocyte Esterase (Negative) Urine RBC (0-5) /hpf Urine WBC (0-5) /hpf Ur Squamous Epith Cells (0-5) /hpf Urine Bacteria (FEW) /hpf Urine Mucus (FEW) /hpf Urine Opiates Screen (UQWQSS=020) Ur Buprenorphine Scrn (CUTOFF=10) Ur Oxycodone Screen (GOC0DK=949) Urine Methadone Screen (LDOYHW=763) Ur Propoxyphene Screen (LURQTW=927) Ur Barbiturates Screen (ZMNHMR=934) Ur Tricyclics Screen (MTZJZA=586) Ur Phencyclidine Scrn (CUTOFF=25) Ur Amphetamine Screen (NPWDGT=478) U Methamphetamines Scrn (GKKFBJ=186) U Benzodiazepines Scrn (XJEWKU=659) U Cocaine Metab Screen (URXLBF=604) U Marijuana (THC) Screen (CUTOFF=50) RPR (NONREACTIVE) SARS-CoV-2 RNA (RT-PCR) Negative (NEGATIVE) ASSESSMENT: 19-year-old female -0-0-1 s/p normal vaginal delivery PPD #1, complicated by rubella nonimmune status PLAN: Doing well Breast-feeding with minimal difficulty. Assist as needed Lochia minimal. Continue to monitor for appropriate lochia. Continue routine care MMR vaccine prior to discharge Anticipate discharge home today if infant is ready for discharge Manav Perdomo MD 10:06 AM 03/13/2020
--- NOTE | 2020-03-13 10:15 | PCM.DCSUM1 ---
Discharge Summary - Hospital Course Free Text/Narrative:: - General Info Date of Service: 03/12/20 Mother's Due Date: 03/21/20 - Delivery Note Labor: Spontaneous, Augmented by Oxytocin Infant Delivery Method: Spontaneous Vaginal Delivery-Single Presentation: Right Occiput Anterior (ERIK) Nuchal Cord: Present (x1), Reduced Prep: Povidone-Iodine (Betadine Anesthesia Type: Epidural Amniotic Fluid Description: Clear Laceration: Labial (Right first degree repaired with 4-0 Vicryl), Perineal (Second-degree midline, repaired with 3-0 Vicryl) Suture type: Vicryl Suture size: 3-0 Placenta: Intact, Spontaneous Cord: 3 Vessels Estimated Blood Loss: 300 Resuscitation Needed: Yes : Bulb Syringe, Stimulated, Warmed, [place] Used Provider: Manav Perdomo Score 1 min: 8 Score 5 min: 9 Second Stage Interventions: Reports: Pushing Effectively, Pushing, Stirrups/Leg Supports Delivery Comments (Free Text/Narrative):: Stage I: Faustina Garza was admitted for spontaneous rupture membranes with clear fluid. She thinks that she may have had spontaneous rupture membranes on 03/10/2020 at around 10 AM but did not present to labor and delivery until 03/11/2020. On admission her cervix was dilated to 2 cm. She was GBS negative. She was started on Pitocin for augmentation of labor. She was given an epidural for anesthesia. She progressed to complete and pushing. Stage II: On 03/12/2020 she had a normal vaginal delivery of a live male infant at 01:55. Apgars of 8 & 9. Weight of 2540 g (5 lbs 9.6 oz). Length of 19 inches. There was a single nuchal cord that was reduced prior to delivery of the infant. Infant was delivered in ERIK position. The cord was doubly clamped and cut by father the infant. Infant was placed on mother's abdomen. Stage III: She had a spontaneous delivery of an intact placenta in Sly presentation. Three vessel cord. She was given pitocin and fundal massage. She had a second-degree midline perineal laceration that was repaired with 3-0 Vicryl. She had a first-degree right labial laceration that was repaired with 4-0 Vicryl. Mom and baby were stable to recovery. EBL of 300 mL. HPI Initial Comments: - General Info Date of Service: 03/12/20 Mother's Due Date: 03/21/20 - Delivery Note Labor: Spontaneous, Augmented by Oxytocin Delivery Method: Spontaneous Vaginal Delivery-Single Presentation: Right Occiput Anterior (ERIK) Nuchal Cord: Present (x1), Reduced Prep: Povidone-Iodine (Betadine Anesthesia Type: Epidural Amniotic Fluid Description: Clear Laceration: Labial (Right first degree repaired with 4-0 Vicryl), Perineal (Second-degree midline, repaired with 3-0 Vicryl) Suture type: Vicryl Suture size: 3-0 Placenta: Intact, Spontaneous Cord: 3 Vessels Estimated Blood Loss: 300 Resuscitation Needed: Yes : Bulb Syringe, Stimulated, Warmed, [place] Used Provider: Manav Perdomo Score 1 min: 8 Score 5 min: 9 Second Stage Interventions: Reports: Pushing Effectively, Pushing, Stirrups/Leg Supports Delivery Comments (Free Text/Narrative):: Stage I: Faustina Garza was admitted for spontaneous rupture membranes with clear fluid. She thinks that she may have had spontaneous rupture membranes on 03/10/2020 at around 10 AM but did not present to labor and delivery until 03/11/2020. On admission her cervix was dilated to 2 cm. She was GBS negative. She was started on Pitocin for augmentation of labor. She was given an epidural for anesthesia. She progressed to complete and pushing. Stage II: On 03/12/2020 she had a normal vaginal delivery of a live male infant at 01:55. Apgars of 8 & 9. Weight of 2540 g (5 lbs 9.6 oz). Length of 19 inches. There was a single nuchal cord that was reduced prior to delivery of the . Infant was delivered in ERIK position. The cord was doubly clamped and cut by father the . Infant was placed on mother's abdomen. Stage III: She had a spontaneous delivery of an intact placenta in Sly presentation. Three vessel cord. She was given pitocin and fundal massage. She had a second-degree midline perineal laceration that was repaired with 3-0 Vicryl. She had a first-degree right labial laceration that was repaired with 4-0 Vicryl. Mom and baby were stable to recovery. EBL of 300 mL. Brief History: - General Info. Date of Service: 03/12/20. Mother's Due Date: 03/21/20. - Delivery Note. Labor: Spontaneous, Augmented by Oxytocin. Infant Delivery Method: Spontaneous Vaginal Delivery-Single. Presentation: Right Occiput Anterior (ERIK). Nuchal Cord: Present (x1), Reduced. Prep: Povidone- Iodine (Betadine. Anesthesia Type: Epidural. Amniotic Fluid Description: Clear. Laceration: Labial (Right first degree repaired with 4-0 Vicryl), Perineal (Second-degree midline, repaired with 3-0 Vicryl). Suture type: Vicryl. Suture size: 3-0. Placenta: Intact, Spontaneous. Cord: 3 Vessels. Estimated Blood Loss: 300. Resuscitation Needed: Yes. : Bulb Syringe, Stimulated, Warmed, [place] Used. Provider: Manav Perdomo. Score 1 min: 8. Score 5 min: 9. Second Stage Interventions: Reports: Pushing Effectively, Pushing, Stirrups/Leg Supports. Delivery Comments (Free Text/Narrative):: Stage I: Faustina Garza was admitted for spontaneous rupture membranes with clear fluid. She thinks that she may have had spontaneous rupture membranes on 03/10/2020 at around 10 AM but did not present to labor and delivery until 03/11/2020. On admission her cervix was dilated to 2 cm. She was GBS negative. She was started on Pitocin for augmentation of labor. She was given an epidural for anesthesia. She progressed to complete and pushing. Stage II: On 03/12/2020 she had a normal vaginal delivery of a live male at 01:55. Apgars of 8 & 9. Weight of 2540 g (5 lbs 9.6 oz). Length of 19 inches. There was a single nuchal cord that was reduced prior to delivery of the . Infant was delivered in ERIK position. The cord was doubly clamped and cut by father the . was placed on mother's abdomen. Stage III: She had a spontaneous delivery of an intact placenta in Sly presentation. Three vessel cord. She was given pitocin and fundal massage. She had a second-degree midline perineal laceration that was repaired with 3-0 Vicryl. She had a first-degree right labial laceration that was repaired with 4-0 Vicryl. Mom and baby were stable to recovery. EBL of 300 mL. Diagnosis: Stroke: No - Discharge Data Discharge Date: 03/13/20 Discharge Disposition: Home, Self-Care 01 Condition: Good - Referral to Home Health Primary Care Physician: Harini Kline MD - Discharge Diagnosis/Problem(s) (1) 38 weeks gestation of SNOMED Code(s): 49281539 ICD Code: Z3A.38 - 38 WEEKS GESTATION OF Status: Acute Current Visit: Yes (2) Marijuana use SNOMED Code(s): 477277388 ICD Code: F12.90 - CANNABIS USE, UNSPECIFIED, UNCOMPLICATED Status: Acute Current Visit: Yes (3) Vaginal delivery SNOMED Code(s): 517356976 ICD Code: O80 - ENCOUNTER FOR FULL-TERM UNCOMPLICATED DELIVERY Status: Acute Current Visit: Yes (4) Second degree perineal laceration during delivery SNOMED Code(s): 4249914 ICD Code: O70.1 - SECOND DEGREE PERINEAL LACERATION DURING DELIVERY Status: Acute Current Visit: Yes - Patient Summary/Data Complications: None Consults: None Hospital Course: Faustina Gazra was admitted for spontaneous rupture of membranes. On admission she had been leaking a large amount of clear fluid. Uncertain for length of time for rupture of membranes as she may have had rupture membranes around 10 AM on 03/10/2020 but did not present to labor and delivery until 03/11/2020. On admission her cervix was dilated to 1-2 cm. She was GBS negative. She was given pitocin for augmentation. [She was given an epidural for anesthesia. She progressed to complete and began pushing. On 03/12/2020 she had a normal vaginal delivery of a live male infant at 01:55. Apgars of 8 and 9. Weight of 2540 g (5 pounds 9.6 ounces). Her course was uneventful. Her pain was well controlled and she had minimal lochia. She was ambulating, tolerating a regular diet and voiding normally. She was breast-feeding with minimal difficulty. She was afebrile and her hematocrit was 41.8 on admission. She desired to be discharged home on the morning of PPD #1. Her blood type is A+. - Patient Instructions Diet: Regular Diet as Tolerated Activity: Apply Ice, As Tolerated Activity, Other: Nothing in the vagina for 6 weeks Driving: May Drive Today Showering/Bathing: May Shower Notify Provider of: Fever, Increased Pain, Swelling and Redness, Drainage, Nausea and/or Vomiting Other/Special Instructions: Please contact your physician's office if you have heavy vaginal bleeding enough to soak a pad in less than an hour for several hours. Monitor for any signs of an infection in the breasts with severe pain or redness of the breast. - Discharge Plan *PRESCRIPTION DRUG MONITORING PROGRAM REVIEWED*: Not Applicable *COPY OF PRESCRIPTION DRUG MONITORING REPORT IN PATIENT LEONIDES: Not Applicable Home Medications: Home Meds Pnv No.95/Ferrous Fum/Folic AC [ Tablet] 1 tab PO DAILY 03/11/20 [History] Acetaminophen [Tylenol] 650 mg PO Q6H PRN tablet 03/13/20 [Rx] Benzocaine/Menthol [Dermoplast Pain Relief [place]] 1 spray TOP ASDIRECTED PRN canister 03/13/20 [Rx] Docusate Sodium [Colace] 100 mg PO BID PRN cap 03/13/20 [Rx] Hydrocortisone Acetate [Anucort-HC] 25 mg RECTAL BID PRN supp 03/13/20 [Rx] Ibuprofen [Motrin] 600 mg PO Q6H PRN tablet 03/13/20 [Rx] witch Richard [Tucks] 1 pad TOP ASDIRECTED PRN pad 03/13/20 [Rx] Patient Handouts: What You Need to Know About Marijuana Use, Care of a Perineal Tear, Care After Vaginal Delivery Referrals: Harini Kline MD [Primary Care Provider] - (Follow-up in 6 weeks for routine visit or earlier as needed.) - Discharge Summary/Plan Comment DC Time >30 min.: No - Patient Data Vitals - Most Recent: Last Vital Signs Temp 36.2 C 03/13/20 09:09 Pulse 68 03/13/20 09:09 Resp 16 03/13/20 09:09 BP 114/69 03/13/20 09:09 Pulse Ox 100 03/13/20 09:09 Weight - Most Recent: 63.957 kg Med Orders - Current: Current Medications Acetaminophen (Tylenol) 650 mg PO Q6H PRN PRN Reason: mild pain or fever Benzocaine/Menthol (Dermoplast Pain Relief [place]) 0 gm TOP ASDIRECTED PRN PRN Reason: Perineal Comfort Measure Docusate Sodium (Colace) 100 mg PO BID PRN PRN Reason: Constipation Hydrocortisone Acetate (Anucort-Hc) 25 mg RECTAL BID PRN PRN Reason: Hemorrhoid pain Oxytocin/Lactated Ringer's (Pitocin In Lr 10 Units/1,000 Ml) 10 unit in 1,000 mls @ 100 mls/hr IV TITRATE MELISSA; Protocol Ibuprofen (Motrin) 600 mg PO Q6H PRN PRN Reason: Mild pain or fever Last Admin: 03/13/20 04:50 Dose: 600 mg Documented by: Magnesium Hydroxide (Milk Of Magnesia) 30 ml PO BEDTIME PRN PRN Reason: Constipation Prenat Multivit/Haines/Iron/Folic Ac ( Plus Iron) 1 each PO DAILY MELISSA Last Admin: 03/12/20 09:02 Dose: 1 each Documented by: [facility]) 1 pad TOP ASDIRECTED PRN PRN Reason: Perineal Comfort Measure Last Admin: 03/12/20 05:36 Dose: 1 package Documented by: Discontinued Medications Bupivacaine HCl (Sensorcaine-Mpf 0.25%) 10 ml .ROUTE .STK-MED ONE Stop: 03/12/20 00:01 Diphenhydramine HCl (Benadryl) 25 mg IVPUSH Q6H PRN PRN Reason: pruritis Ephedrine Sulfate (Ephedrine Sulfate) 5 mg IVPUSH ASDIRECTED PRN PRN Reason: Hypotension Fentanyl (Sublimaze) Confirm Administered Dose 100 mcg .ROUTE .STK-MED ONE Stop: 03/11/20 17:26 Last Admin: 03/11/20 17:31 Dose: 100 mcg Documented by: Fentanyl (Sublimaze) 100 mcg EPIDUR Q3H PRN PRN Reason: Pain Fentanyl/Bupivacaine HCl (Fentanyl/Bupivacaine/Ns 2 Mcg-0.125% 100 Ml) 100 ml EPIDUR ASDIRECTED PRN PRN Reason: Pain Last Admin: 03/11/20 18:23 Dose: 100 ml Documented by: Lactated Ringer's (Ringers, Lactated) 1,000 mls @ 100 mls/hr IV ASDIRECTED MELISSA Last Infusion: 03/11/20 22:18 Dose: 100 mls/hr Documented by: Oxytocin/Lactated Ringer's (Pitocin In Lr 10 Units/1,000 Ml) 10 unit in 1,000 mls @ 12 mls/hr IV TITRATE MELISSA; Protocol Last Titration: 03/12/20 02:00 Dose: 83.33 munits/min, 500 mls/hr Documented by: Oxytocin/Lactated Ringer's (Pitocin In Lr 10 Units/1,000 Ml) 10 unit in 1,000 mls @ 500 mls/hr IV .CONTINUOUS MELISSA Measles/Mumps/Rubella Vaccine Live (M-M-R Ii Vaccine) 0.5 ml SUBCUT .ONCE ONE Stop: 03/13/20 09:50 Nalbuphine HCl (Nubain) 10 mg IVPUSH Q2H PRN PRN Reason: Pain Last Admin: 03/11/20 17:35 Dose: 10 mg Documented by: Ondansetron HCl (Zofran) 4 mg IVPUSH Q4H PRN PRN Reason: Nausea/Vomiting Last Admin: 03/11/20 22:09 Dose: 4 mg Documented by: Sodium Chloride (Saline Flush) 10 ml FLUSH ASDIRECTED PRN PRN Reason: Keep Vein Open
[2020-03-13] MEDS: Prenatal Multivitamin with Calcium/Folic Acid/Iron Tab PO SCH (10:40)
== END 2020-03-13 11:11 | disposition home or self-care (01) | DRG 807 ==
LOC: JD.OBCHECK 13:30 → JD.OB 13:37 → JD.OBCHECK 15:37 → JD.OB 15:38 → OBSVTOIN 03-12 01:55 → JD.OB 03-12 01:56
PROVIDERS: ADMIT Obstetrics & Gynecology; ATTEND Obstetrics & Gynecology
PROC: 10907ZC Drainage of Amniotic Fluid, Therapeutic from Products of Conception, Via Natural or Artificial Opening (ICD-10-PCS; principal; 2020-03-12)
PROC: 10E0XZZ Delivery of Products of Conception, External Approach (ICD-10-PCS; 2020-03-12)
PROC: 0HQ9XZZ Repair Perineum Skin, External Approach (ICD-10-PCS; 2020-03-12)
PROC: 3E0R3BZ Introduction of Anesthetic Agent into Spinal Canal, Percutaneous Approach (ICD-10-PCS; 2020-03-12)
DX: O69.81X0 Labor and delivery complicated by cord around neck, without compression, not applicable or unspecified (principal); Z37.0 Single live birth; Z3A.38 38 weeks gestation of pregnancy; O70.1 Second degree perineal laceration during delivery; Z88.1 Allergy status to other antibiotic agents; Z91.018 Allergy to other foods; Z87.891 Personal history of nicotine dependence; Z20.828 Contact with and (suspected) exposure to other viral communicable diseases
CPT/HCPCS: 01967; 36415; 51701; 51702; 59025; 59409; 80306; 81001; 85025; 86592; 90471; 90707; A9270-GY; J2300; J2405; J2590; J3010; J3490; J7120; U0002

== ENCOUNTER 2021-05-06 22:57 | Inpatient (IN) | payer MEDICAID ==
[2021-05-07] MEDS ORDERED: Ondansetron 4 MG/2 ML SDV IVPUSH PRN (00:13)
[2021-05-07] MEDS ORDERED: Nalbuphine 10 MG/1 ML Vial IVPUSH PRN (00:13)
[2021-05-07] MEDS ORDERED: Sodium Chloride 0.9% 10 ML Syringe FLUSH PRN (00:13)
[2021-05-07] MEDS ORDERED: Oxytocin/Lactated Ringers 10 UNIT/1,000 ML BAG IV SCH ×2 (00:15)
[2021-05-07] MEDS: Lactated Ringers 1,000 ML IV SCH ×3 (04:12→13:37)
--- NOTE | 2021-05-07 10:08 | PCM.LDHP ---
<Hao Gaticaidi - Last Filed: 05/07/21 13:17> L&D History of Present Illness - General Date of Service: 05/07/21 Admit Problem/Dx: Patient Status Order with Admit Dx/Problem 05/07/21 00:48 Patient Status [ADT] Routine Admission Diagnosis/Problem Admission Diagnosis/Problem Faustina Garza is a 21 yo female admitted on 05/06/21 at gestational age of 38 4/7 weeks with SUSAN of 05/18/21 in active labor. 05/07/21 11:09 Source of Information: Patient, EMS, EMS Notes Reviewed, RN History Limitations: Reports: No Limitations - History of Present Illness Introduction:: Faustina Garza is a 21 yo female who presents at gestational age of 38 4/7 weeks in active labor. SUSAN is 05/18/21 based on 20 week ultrasound. On 05/06/21 at 2130 she had spontaneous rupture of membranes followed by onset of contractions. Contractions have been increasing in intensity since then. Pt plans to have an epidural for pain control. GBS negative. care: Pt presented for initial visit at 9w6d, and received routine care since then. Pt reports vaping 3-4 times a day during her , using a "5% low dose." Pt has past 2-year smoking history. Pt was seen by maternal medicine for concern of IUGR, but fetus was found to have appropriate growth. Pt has had adequate weight gain of approximately 30 lbs (101 to 131 lbs) during . Blood type: A postive Initial Hgb 13.0 Rubella antibodies: positive, indicating immunity RPR: nonreactive HbsAg: nonreactive Gonorrhea/Chlamydia: not detected GBS: negative Allergies: Biaxin (clarithromycin), pineapple, and raspberries Current medications: vitamin Past medical history: 1. x1. Delivered 5 lb 13 oz infant at 38 5/7 days gestation complicated only by laceration and suturing. Surgical history: 1. [place] teeth extraction. Pt notes that she required increasing doses of anesthesia during the procedure for sedation, but reports no adverse response. FH: Sickle cell trait - father (Pt. 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 ROS: General: Pt presents in active labor. Denies headache, fever, chills, extreme fatigue, or weakness. Skin: negative Breast: No lumps, tenderness, discharge. Cardiovascular: Denies palpitations, murmurs, and irregular heartbeat. Pulmonary: Reports history of asthma as a child. Denies cough and congestion. Gastrointestinal: Reports constipation. Denies nausea, vomiting, hematuria, hematochezia. Musculoskeletal: Reports back pain. Neurological: negative. Physical Exam: Faustina is a female in active labor. In general, pt is a well-developed, well-nourished, pleasant female appearing her stated age. HEENT: within normal limits. Cardiovascular: Regular rate and rhythm with no murmurs or extra sounds heard. Pulmonary: Lungs are clear to auscultation. No accessory muscle use with respiration. Abdomen: gravid Genital digital exam: Cervix is soft, 80% effaced, and dilated 2 cm. - Related Data Allergies/Adverse Reactions: Allergies Allergy/AdvReac Type Severity Reaction Status Date / Time clarithromycin [From Biaxin] Allergy Other Verified 03/11/20 14:55 pineapple Allergy Rash Verified 03/11/20 14:55 raspberry Allergy Rash Verified 05/06/21 23:34 Home Medications: Home Meds Pnv No.95/Ferrous Fum/Folic AC [ Tablet] 1 tab PO DAILY 03/11/20 [History] Acetaminophen [Tylenol] 650 mg PO Q4H PRN tablet 05/08/21 [Rx] Ibuprofen [Motrin] 600 mg PO Q4H PRN tablet 05/08/21 [Rx] Past Medical History - Past Health History Medical/Surgical History: Denies Medical/Surgical History HEENT History: Reports: Impaired Vision, Other (See Below) Other HEENT History: Pt wears Glasses Cardiovascular History: Reports: None Respiratory History: Reports: Asthma Gastrointestinal History: Reports: None Genitourinary History: Reports: None LGSW History: Reports: Musculoskeletal History: Reports: None Other Musculoskeletal History: scoliosis Neurological History: Reports: None Psychiatric History: Reports: None Endocrine/Metabolic History: Reports: None Hematologic History: Reports: None Immunologic History: Reports: None Oncologic (Cancer) History: Reports: None Dermatologic History: Reports: None - Infectious Disease History Infectious Disease History: Reports: None - Past Surgical History HEENT Surgical History: Reports: Tonsillectomy Respiratory Surgical History: Reports: None Social & Family History - Family History Family Medical History: No Pertinent Family History - Tobacco Use Tobacco Use Status *Q: Unknown Ever Used Tobacco Second Hand Smoke Exposure: No - Caffeine Use Caffeine Use: Reports: None - Recreational Drug Use Recreational Drug Use: No H&P Review of Systems - Review of Systems: Review Of Systems: See Below L&D Exam - Exam Exam: See Below - Vital Signs Vital Signs: Last Vital Signs Temp 97.8 F 05/06/21 23:15 Pulse Resp 16 05/06/21 23:15 BP 101/67 05/06/21 23:15 Pulse Ox 98 05/06/21 23:15 Weight: 58.831 kg - Patient Data Lab Results Last 24 hrs: Laboratory Results - last 24 hr 05/06/21 05/07/21 05/07/21 Range/Units 23:15 00:25 00:25 WBC 11.38 H (3.98-10.04) K/mm3 RBC 4.14 (3.98-5.22) M/mm3 Hgb 12.2 D (11.2-15.7) gm/dl Hct 36.2 (34.1-44.9) % MCV 87.4 (79.4-94.8) fl MCH 29.5 (25.6-32.2) pg MCHC 33.7 (32.2-35.5) g/dl RDW Std Deviation 38.9 (36.4-46.3) fL Plt Count 214 (182-369) K/mm3 MPV 9.6 (9.4-12.3) fl Neut % (Auto) 70.1 (34.0-71.1) % Lymph % (Auto) 18.1 L (19.3-51.7) % [place] % (Auto) 10.4 (4.7-12.5) % Eos % (Auto) 0.8 (0.7-5.8) Baso % (Auto) 0.2 (0.1-1.2) % Neut # (Auto) 7.99 H (1.56-6.13) K/mm3 Lymph # (Auto) 2.06 (1.18-3.74) K/mm3 [place] # (Auto) 1.18 H (0.24-0.36) K/mm3 Eos # (Auto) 0.09 (0.04-0.36) K/mm3 Baso # (Auto) 0.02 (0.01-0.08) K/mm3 Membrane Rupture Positive H SARS-CoV-2 RNA (DANNY) (NEGATIVE) Blood Type A POSITIVE Gel Antibody Screen Negative 05/07/21 Range/Units 00:37 WBC (3.98-10.04) K/mm3 RBC (3.98-5.22) M/mm3 Hgb (11.2-15.7) gm/dl Hct (34.1-44.9) % MCV (79.4-94.8) fl MCH (25.6-32.2) pg MCHC (32.2-35.5) g/dl RDW Std Deviation (36.4-46.3) fL Plt Count (182-369) K/mm3 MPV (9.4-12.3) fl Neut % (Auto) (34.0-71.1) % Lymph % (Auto) (19.3-51.7) % [place] % (Auto) (4.7-12.5) % Eos % (Auto) (0.7-5.8) Baso % (Auto) (0.1-1.2) % Neut # (Auto) (1.56-6.13) K/mm3 Lymph # (Auto) (1.18-3.74) K/mm3 [place] # (Auto) (0.24-0.36) K/mm3 Eos # (Auto) (0.04-0.36) K/mm3 Baso # (Auto) (0.01-0.08) K/mm3 Membrane Rupture SARS-CoV-2 RNA (DANNY) Negative (NEGATIVE) Blood Type Gel Antibody Screen Result Diagrams: 05/07/21 00:25 Orders Last 24hrs: Active Orders 24 hr Category Date Time Status Patient Status [ADT] Routine ADT 05/07/21 00:48 Active Activity as Tolerated [RC] PFP Care 05/07/21 00:13 Active Communication Order [RC] ASDIRECTED Care 05/07/21 00:13 Active Heart Tones [RC] ASDIRECTED Care 05/07/21 00:14 Active Non Stress Test [RC] PER UNIT ROUTINE Care 05/06/21 23:07 Active Notify Provider [RC] PFP Care 05/07/21 00:13 Active Notify Provider [RC] PRN Care 05/07/21 00:13 Active Peripheral IV Care [RC] . DIRECTED Care 05/07/21 00:14 Active Vital Signs [RC] PER UNIT ROUTINE Care 05/06/21 23:07 Active Regular Diet [DIET] Diet 05/07/21 Breakfast Active RAPID PLASMA REAGIN,RPR [CHEM] Routine Lab 05/07/21 00:25 Received Lactated Ringers [Ringers, Lactated] 1,000 ml Med 05/07/21 00:15 Active IV ASDIRECTED Nalbuphine [Nubain] Med 05/07/21 00:13 Active 10 mg IVPUSH Q2H PRN Ondansetron [Zofran] Med 05/07/21 00:13 Active 4 mg IVPUSH Q4H PRN Oxytocin/Lactated Ringers [Pitocin in LR 10 Units/1,000 Med 05/07/21 00:15 Active ML] 10 unit in 1,000 ml IV .CONTINUOUS Oxytocin/Lactated Ringers [Pitocin in LR 10 Units/1,000 Med 05/07/21 00:15 Active ML] 10 unit in 1,000 ml IV TITRATE Sodium Chloride 0.9% [Saline Flush] Med 05/07/21 00:13 Active 10 ml FLUSH ASDIRECTED PRN Electronic Heart Tones Ext w TOCO [WOMSER] Oth 05/07/21 00:13 Ordered Routine Electronic Heart Tones Internal [WOMSER] Per Unit Oth 05/07/21 00:13 Ordered Routine Peripheral IV Insertion Adult [OM.PC] Routine Oth 05/07/21 00:13 Ordered Resuscitation Status Routine Resus Stat 05/06/21 23:07 Ordered Medication Orders Lactated Ringer's (Ringers, Lactated) 1,000 mls @ 100 mls/hr IV ASDIRECTED MELISSA Last Admin: 05/07/21 09:58 Dose: 100 mls/hr Documented by: Infusion: 05/07/21 09:58 Dose: 100 mls/hr Documented by: Admin: 05/07/21 04:12 Dose: 100 mls/hr Documented by: CARON Oxytocin/Lactated Ringer's (Pitocin In Lr 10 Units/1,000 Ml) 10 unit in 1,000 mls @ 12 mls/hr IV TITRATE MELISSA; Protocol Last Titration: 05/07/21 09:56 Dose: 4 munits/min, 24 mls/hr Documented by: Titration: 05/07/21 09:20 Dose: 8 munits/min, 48 mls/hr Documented by: Titration: 05/07/21 07:39 Dose: 7 munits/min, 42 mls/hr Documented by: Titration: 05/07/21 07:00 Dose: 8 munits/min, 48 mls/hr Documented by: Titration: 05/07/21 06:35 Dose: 6 munits/min, 36 mls/hr Documented by: Titration: 05/07/21 06:00 Dose: 4 munits/min, 24 mls/hr Documented by: Admin: 05/07/21 04:12 Dose: 2 munits/min, 12 mls/hr Documented by: CARON Oxytocin/Lactated Ringer's (Pitocin In Lr 10 Units/1,000 Ml) 10 unit in 1,000 mls @ 100 mls/hr IV .CONTINUOUS MELISSA Nalbuphine HCl (Nalbuphine 10 Mg/1 Ml Vial) 10 mg IVPUSH Q2H PRN PRN Reason: Pain Ondansetron HCl (Ondansetron 4 Mg/2 Ml Sdv) 4 mg IVPUSH Q4H PRN PRN Reason: Nausea/Vomiting Sodium Chloride (Sodium Chloride 0.9% 10 Ml Syringe) 10 ml FLUSH ASDIRECTED PRN PRN Reason: Keep Vein Open Assessment/Plan Comment:: Assessment: 1. 21 yo female at gestational age of 38 4/7 weeks with SROM and active labor. 2. Cervix soft, dilated to 4 cm, 80% effaced. 3. GBS negative. 4. Patient plans to breast feed. 5. Pt desires epidural for pain control. Plan: 1. monitoring. 2. Continue ptocin IV. 3. Routine assessment of cervical dilation and labor progression. 3. Epidural per patient desire for pain management. 4. Support patient's plans to breast feed. <Dawson Verdugo - Last Filed: 05/09/21 08:59> L&D History of Present Illness - General Date of Service: 05/07/21 Admit Problem/Dx: Admission Diagnosis/Problem Admission Diagnosis/Problem Source of Information: Patient History Limitations: Reports: No Limitations H&P Review of Systems - Review of Systems: Review Of Systems: See Below L&D Exam - Exam Exam: See Below - Vital Signs Vital Signs: Last Vital Signs Temp 36.6 C 05/08/21 07:57 Pulse 81 05/08/21 07:57 Resp 16 05/08/21 07:57 BP 107/84 05/08/21 07:57 Pulse Ox 95 05/08/21 07:57 - Patient Data Lab Results Last 24 hrs: Laboratory Results - last 24 hr 05/07/21 Range/Units 00:25 RPR Non-reactive (NONREACTIVE) Result Diagrams: 05/07/21 00:25 Problem List Initiated/Reviewed/Updated: Yes Orders Last 24hrs: Active Orders 24 hr Category Date Time Status Activity as Tolerated [RC] PER UNIT ROUTINE Care 05/07/21 18:23 Active Vital Signs [RC] 03,09,,21 Care 05/07/21 18:23 Active Regular Diet [DIET] Diet 05/07/21 Dinner Active Acetaminophen [TylenoL] Med 05/07/21 18:23 Active 650 mg PO Q4H PRN Benzocaine/Menthol [Dermoplast Pain Relief [place]] Med 05/07/21 18:23 Active See Dose Instructions TOP ASDIRECTED PRN Docusate Sodium [Colace] Med 05/07/21 18:23 Active 100 mg PO BID PRN Ibuprofen [Motrin] Med 05/07/21 18:23 Active 600 mg PO Q4H PRN Vit with Ca/FA/Iron [ Plus Iron] Med 05/08/21 09:00 Active 1 each PO DAILY witch Richard [Tucks] Med 05/07/21 18:23 Active 1 pad TOP ASDIRECTED PRN Assess Lochia [WOMSER] Per Unit Routine Oth 05/07/21 18:23 Ordered Assess Uterine Involution [WOMSER] Per Unit Routine Oth 05/07/21 18:23 Ordered Breast Pump [WOMSER] Per Unit Routine Oth 05/07/21 18:23 Ordered Heat Therapy [OM.PC] PRN Oth 05/07/21 18:30 Ordered Heat Therapy [OM.PC] PRN Oth 05/08/21 18:30 Ordered Ice Therapy [OM.PC] Per Unit Routine Ot 05/07/21 18:23 Ordered Medication Administration Instruction [OM.PC] Routine Ot 05/07/21 18:23 Ordered Perineal Care [OM.PC] Per Unit Routine Ot 05/07/21 18:23 Ordered Sitz Bath [OM.PC] Per Unit Routine Ot 05/07/21 18:23 Ordered Medication Orders Acetaminophen (Acetaminophen 325 Mg Tab) 650 mg PO Q4H PRN PRN Reason: mild pain or fever Benzocaine/Menthol (Benzocaine/Menthol 20%-0.5% [place] 56 Gm Canister) 0 gm TOP ASDIRECTED PRN PRN Reason: Perineal Comfort Measure Last Admin: 05/07/21 18:59 Dose: 1 applic Documented by: RAGHAV Docusate Sodium (Docusate Sodium 100 Mg Cap) 100 mg PO BID PRN PRN Reason: Constipation Ibuprofen (Ibuprofen 600 Mg Tab) 600 mg PO Q4H PRN PRN Reason: Mild pain or fever Prenat Multivit/Fries/Iron/Folic Ac ( Multivitamin With Calcium/Folic Acid/Iron Tab) 1 each PO DAILY MELISSA Last Admin: 05/08/21 08:00 Dose: 1 each Documented by: RENEA Gallardo (Isabel Gallardo Medicated Pads 40/Jar) 1 pad TOP ASDIRECTED PRN PRN Reason: Perineal Comfort Measure Last Admin: 05/07/21 18:59 Dose: 1 applic Documented by: RAGHAV
[2021-05-07] MEDS ORDERED: Bupivacaine/fentaNYL/NS 100 ML Bag EPIDUR PRN (10:18)
[2021-05-07] MEDS ORDERED: fentaNYL 100 MCG/2 ML SDV EPIDUR PRN (10:18)
[2021-05-07] MEDS ORDERED: diphenhydrAMINE 50 MG/ML SDV IVPUSH PRN (10:18)
[2021-05-07] MEDS ORDERED: ePHEDrine 50 MG/ML SDV IVPUSH PRN (10:18)
--- NOTE | 2021-05-07 10:44 | PCM.PREANE ---
Preanesthetic Assessment - Procedure Proposed Procedure: marie - Anesthesia/Transfusion/Family Hx Anesthesia History: Prior Anesthesia Without Reaction Family History of Anesthesia Reaction: No Transfusion History: No Prior Transfusion(s) - Review of Systems General: No Symptoms Pulmonary: No Symptoms Cardiovascular: No Symptoms Gastrointestinal: No Symptoms Neurological: No Symptoms Other: Reports: None - Physical Assessment Vital Signs: Last Vital Signs Temp 97.8 F 05/06/21 23:15 Pulse Resp 16 05/06/21 23:15 BP 101/67 05/06/21 23:15 Pulse Ox 98 05/06/21 23:15 Height: 5 ft 3 in Weight: 58.831 kg ASA Class: 2 Mental Status: Alert & Oriented x3 Airway Class: Mallampati = 1 Dentition: Reports: Normal Dentition Thyro-Mental Finger Breadths: 3 Mouth Opening Finger Breadths: 3 ROM/Head Extension: Full Lungs: Clear to Auscultation, Normal Respiratory Effort Cardiovascular: Regular Rate, Regular Rhythm - Lab Values: Laboratory Last Values WBC 11.38 K/mm3 (3.98-10.04) H 05/07/21 00:25 RBC 4.14 M/mm3 (3.98-5.22) 05/07/21 00:25 Hgb 12.2 gm/dl (11.2-15.7) D 05/07/21 00:25 Hct 36.2 % (34.1-44.9) 05/07/21 00:25 MCV 87.4 fl (79.4-94.8) 05/07/21 00:25 MCH 29.5 pg (25.6-32.2) 05/07/21 00:25 MCHC 33.7 g/dl (32.2-35.5) 05/07/21 00:25 RDW Std Deviation 38.9 fL (36.4-46.3) 05/07/21 00:25 Plt Count 214 K/mm3 (182-369) 05/07/21 00:25 MPV 9.6 fl (9.4-12.3) 05/07/21 00:25 Neut % (Auto) 70.1 % (34.0-71.1) 05/07/21 00:25 Lymph % (Auto) 18.1 % (19.3-51.7) L 05/07/21 00:25 [place] % (Auto) 10.4 % (4.7-12.5) 05/07/21 00:25 Eos % (Auto) 0.8 (0.7-5.8) 05/07/21 00:25 Baso % (Auto) 0.2 % (0.1-1.2) 05/07/21 00:25 Neut # (Auto) 7.99 K/mm3 (1.56-6.13) H 05/07/21 00:25 Lymph # (Auto) 2.06 K/mm3 (1.18-3.74) 05/07/21 00:25 [place] # (Auto) 1.18 K/mm3 (0.24-0.36) H 05/07/21 00:25 Eos # (Auto) 0.09 K/mm3 (0.04-0.36) 05/07/21 00:25 Baso # (Auto) 0.02 K/mm3 (0.01-0.08) 05/07/21 00:25 Membrane Rupture Positive H 05/06/21 23:15 SARS-CoV-2 RNA (DANNY) Negative (NEGATIVE) 05/07/21 00:37 Blood Type A POSITIVE 05/07/21 00:25 Gel Antibody Screen Negative 05/07/21 00:25 - Allergies Allergies/Adverse Reactions: Allergies Allergy/AdvReac Type Severity Reaction Status Date / Time clarithromycin [From Biaxin] Allergy Other Verified 03/11/20 14:55 pineapple Allergy Rash Verified 03/11/20 14:55 raspberry Allergy Rash Verified 05/06/21 23:34 - Blood Blood Available: No - Acknowledgements Anesthesia Type Planned: Epidural Pt an Appropriate Candidate for the Planned Anesthesia: Yes Alternatives and Risks of Anesthesia Discussed w Pt/Guardian: Yes Pt/Guardian Understands and Agrees with Anesthesia Plan: Yes PreAnesthesia Questionnaire - Past Health History Medical/Surgical History: Denies Medical/Surgical History HEENT History: Reports: Impaired Vision, Other (See Below) Other HEENT History: Pt wears Glasses Cardiovascular History: Reports: None Respiratory History: Reports: Asthma (as a child) Gastrointestinal History: Reports: GERD Genitourinary History: Reports: None 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: : 2 Para: 1 Musculoskeletal History: Reports: None Other Musculoskeletal History: scoliosis Neurological History: Reports: None Psychiatric History: Reports: None Endocrine/Metabolic History: Reports: None Hematologic History: Reports: None Immunologic History: Reports: None Oncologic (Cancer) History: Reports: None Dermatologic History: Reports: None - Infectious Disease History Infectious Disease History: Reports: None - Past Surgical History HEENT Surgical History: Reports: Oral Surgery Respiratory Surgical History: Reports: None - SUBSTANCE USE Tobacco Use Status *Q: Former Tobacco User Tobacco Use Within Last Twelve Months: Vaping Second Hand Smoke Exposure: No Days Per Week of Alcohol Use: 0 Recreational Drug Use History: No - HOME MEDS Home Medications: Home Meds Pnv No.95/Ferrous Fum/Folic AC [ Tablet] 1 tab PO DAILY 03/11/20 [History] - CURRENT (IN HOUSE) MEDS Current Meds: Current Medications Diphenhydramine HCl (Diphenhydramine 50 Mg/Ml Sdv) 25 mg IVPUSH Q6H PRN PRN Reason: pruritis Ephedrine Sulfate (Ephedrine 50 Mg/Ml Sdv) 5 mg IVPUSH ASDIRECTED PRN PRN Reason: Hypotension Fentanyl (Fentanyl 100 Mcg/2 Ml Sdv) 100 mcg EPIDUR Q3H PRN PRN Reason: Pain Last Admin: 05/07/21 10:33 Dose: 100 mcg Documented by: Fentanyl/Bupivacaine HCl (Bupivacaine/Fentanyl/Ns 100 Ml Bag) 100 ml EPIDUR ASDIRECTED PRN PRN Reason: Pain Last Admin: 05/07/21 10:33 Dose: 100 ml Documented by: Lactated Ringer's (Ringers, Lactated) 1,000 mls @ 100 mls/hr IV ASDIRECTED MELISSA Last Admin: 05/07/21 09:58 Dose: 100 mls/hr Documented by: Oxytocin/Lactated Ringer's (Pitocin In Lr 10 Units/1,000 Ml) 10 unit in 1,000 mls @ 12 mls/hr IV TITRATE MELISSA; Protocol Last Titration: 05/07/21 10:13 Dose: 2 munits/min, 12 mls/hr Documented by: Oxytocin/Lactated Ringer's (Pitocin In Lr 10 Units/1,000 Ml) 10 unit in 1,000 mls @ 100 mls/hr IV .CONTINUOUS MELISSA Nalbuphine HCl (Nalbuphine 10 Mg/1 Ml Vial) 10 mg IVPUSH Q2H PRN PRN Reason: Pain Ondansetron HCl (Ondansetron 4 Mg/2 Ml Sdv) 4 mg IVPUSH Q4H PRN PRN Reason: Nausea/Vomiting Sodium Chloride (Sodium Chloride 0.9% 10 Ml Syringe) 10 ml FLUSH ASDIRECTED PRN PRN Reason: Keep Vein Open
[2021-05-07] MEDS ORDERED: Bupivacaine 0.25% 10 ML SDV ONE (14:00)
[2021-05-07] MEDS ORDERED: Witch Hazel Medicated Pads 40/Jar TOP PRN (18:23)
[2021-05-07] MEDS ORDERED: Benzocaine/Menthol 20%-0.5% Spray 56 GM Canister TOP PRN (18:23)
[2021-05-07] MEDS ORDERED: Ibuprofen 600 MG Tab PO PRN (18:23)
[2021-05-07] MEDS ORDERED: Acetaminophen 325 MG Tab PO PRN (18:23)
[2021-05-07] MEDS ORDERED: Docusate Sodium 100 MG Cap PO PRN (18:23)
--- NOTE | 2021-05-07 18:26 | PCM.SN.2 ---
- Free Text/Narrative Note: Delivery note: Stage I: Faustina Garza is a 21 yo 2 now para 2-0-0-2 female who presented at gestational age of 38 4/7 weeks in active labor. SUSAN is 05/18/21 based on 20 week ultrasound. On 05/06/21 at 2130 she had spontaneous rupture of membranes followed by onset of contractions. She progressed to approximately 4 cm dilation at which time epidural was placed for labor analgesia. She had an intrauterine pressure catheter placed for more accurate evaluation of contraction strength. Pitocin was given to augment labor. She steadily progressed to complete cervical dilation by approximately 1620 hrs. on 05/07/2021. heart tones were reassuring throughout the entire labor course. Stage II: Faustina delivered a viable, sheehan, male infant named Junior Kee at 1642 hrs. in an DONTRELL position. The baby was placed on mom's abdomen. The cord was allowed to pulsate for approximately 3 minutes and was clamped x2 and cut by the baby's father Chilango. Pitocin was increased to 500 cc an hour with the concentration of 10 units of Pitocin per liter. This to facilitate increase in uterine tone and decrease likelihood of bleeding. After cord was cut the cord blood was obtained. The umbilical cord had 3 vessels. Patient was evaluated and no vaginal or perineal lacerations were noted. No suturing was required. The baby had Apgars of 8 and 9, a weight of 2590 g (5 pounds 11.4 ounces) and a half of 18.75 inches. Stage III: The placenta delivered in a Esparza presentation, appeared intact and complete and was discarded per patient desire. Estimated blood loss was 200 cc. Condition: Good. Patient plans to breast-feed.
--- NOTE | 2021-05-08 07:07 | PCM.SN.2 ---
- Free Text/Narrative Note: note: Patient is doing well in the period. Minimal lochia, voiding well, ambulated without problems. Nursing without concerns. Patient is afebrile, vital signs are stable Abdomen is flat, soft, uterus is below the umbilicus and is firm and nontender. Legs are nontender. Assessment: recovery going well. Plan: Routine care. Patient be discharged home within the next 24-48 hours.
[2021-05-08] MEDS ORDERED: Prenatal Multivitamin with Calcium/Folic Acid/Iron Tab PO SCH (09:00)
--- NOTE | 2021-05-08 11:10 | PCM.DCSUM1 ---
Discharge Summary - Hospital Course Free Text/Narrative:: Stage I: Faustina Garza is a 21 yo 2 now para 2-0-0-2 female who presented at gestational age of 38 4/7 weeks in active labor. SUSAN is 05/18/21 based on 20 week ultrasound. On 05/06/21 at 2130 she had spontaneous rupture of membranes followed by onset of contractions. She progressed to approximately 4 cm dilation at which time epidural was placed for labor analgesia. She had an intrauterine pressure catheter placed for more accurate evaluation of contraction strength. Pitocin was given to augment labor. She steadily progressed to complete cervical dilation by approximately 1620 hrs. on 05/07/2021. heart tones were reassuring throughout the entire labor course. Stage II: Faustina delivered a viable, sheehan, male infant named Junior Kee at 1642 hrs. in an DONTRELL position. The baby was placed on mom's abdomen. The cord was allowed to pulsate for approximately 3 minutes and was clamped x2 and cut by the baby's father Chilango. Pitocin was increased to 500 cc an hour with the concentration of 10 units of Pitocin per liter. This to facilitate increase in uterine tone and decrease likelihood of bleeding. After cord was cut the cord blood was obtained. The umbilical cord had 3 vessels. Patient was evaluated and no vaginal or perineal lacerations were noted. No suturing was required. The baby had Apgars of 8 and 9, a weight of 2590 g (5 pounds 11.4 ounces) and a half of 18.75 inches. Stage III: The placenta delivered in a Esparza presentation, appeared intact and complete and was discarded per patient desire. Estimated blood loss was 200 cc. patient is doing well. She is voiding without problems, nursing without concerns, ambulating well and is desiring discharge home. Her vital signs are stable. Patient plans to breast-feed after discharge. Condition: Good. Diagnosis: Stroke: No - Discharge Data Discharge Date: 05/08/21 Discharge Disposition: Home, Self-Care 01 Condition: Good - Referral to Home Health Primary Care Physician: Harini Kline MD - Patient Instructions Diet: Regular Diet as Tolerated (Nursing diet with increased calories and calcium as recommended) Activity: As Tolerated (No intercourse or tampons until vaginal discharge resolves) Driving: May Drive Today Showering/Bathing: May Shower (January take a bath) Notify Provider of: Fever, Increased Pain, Swelling and Redness, Nausea and/or Vomiting - Discharge Plan Home Medications: Home Meds Pnv No.95/Ferrous Fum/Folic AC [ Tablet] 1 tab PO DAILY 03/11/20 [History] Acetaminophen [Tylenol] 650 mg PO Q4H PRN tablet 05/08/21 [Rx] Ibuprofen [Motrin] 600 mg PO Q4H PRN tablet 05/08/21 [Rx] Referrals: Harini Kline MD [Primary Care Provider] - (Patient call clinic for follow-up with her primary care registered physical therapist.) - Discharge Summary/Plan Comment DC Time >30 min.: No Total # of Minutes for Discharge Time: 10 Discharge Summary/Plan Comment: Discharge instructions: 1. Discharge home 2. Diet, activity and follow-up discussed with patient. Recommend nursing diet with increased calories and calcium. 3. Precautions given concern increased pain, bleeding, temperature, signs/symptoms of DVT/PE. 4. Medications per home medication was printed, discussed with and given to the patient. [facility]. [facility] Diagnosis: Term -delivered Condition: Good - Patient Data Vitals - Most Recent: Last Vital Signs Temp 36.6 C 05/08/21 07:57 Pulse 81 05/08/21 07:57 Resp 16 05/08/21 07:57 BP 107/84 05/08/21 07:57 Pulse Ox 95 05/08/21 07:57 Weight - Most Recent: 58.831 kg I&O - Last 24 hours: Intake & Output 05/07/21 05/08/21 05/08/21 22:59 06:59 14:59 Intake Total 1100 Output Total 1325 Balance -225 Lab Results - Last 24 hrs: Laboratory Results - last 24 hr 05/07/21 Range/Units 00:25 RPR Non-reactive (NONREACTIVE) Med Orders - Current: Current Medications Acetaminophen (Acetaminophen 325 Mg Tab) 650 mg PO Q4H PRN PRN Reason: mild pain or fever Benzocaine/Menthol (Benzocaine/Menthol 20%-0.5% [place] 56 Gm Canister) 0 gm TOP ASDIRECTED PRN PRN Reason: Perineal Comfort Measure Last Admin: 05/07/21 18:59 Dose: 1 applic Documented by: Docusate Sodium (Docusate Sodium 100 Mg Cap) 100 mg PO BID PRN PRN Reason: Constipation Ibuprofen (Ibuprofen 600 Mg Tab) 600 mg PO Q4H PRN PRN Reason: Mild pain or fever Prenat Multivit/Assumption/Iron/Folic Ac ( Multivitamin With Calcium/Folic Acid/Iron Tab) 1 each PO DAILY MELISSA Last Admin: 05/08/21 08:00 Dose: 1 each Documented by: Isabel Gallardo (Isabel Gallardo Medicated Pads 40/Jar) 1 pad TOP ASDIRECTED PRN PRN Reason: Perineal Comfort Measure Last Admin: 05/07/21 18:59 Dose: 1 applic Documented by: Discontinued Medications Diphenhydramine HCl (Diphenhydramine 50 Mg/Ml Sdv) 25 mg IVPUSH Q6H PRN PRN Reason: pruritis Ephedrine Sulfate (Ephedrine 50 Mg/Ml Sdv) 5 mg IVPUSH ASDIRECTED PRN PRN Reason: Hypotension Fentanyl (Fentanyl 100 Mcg/2 Ml Sdv) 100 mcg EPIDUR Q3H PRN PRN Reason: Pain Last Admin: 05/07/21 10:33 Dose: 100 mcg Documented by: Fentanyl/Bupivacaine HCl (Bupivacaine/Fentanyl/Ns 100 Ml Bag) 100 ml EPIDUR ASDIRECTED PRN PRN Reason: Pain Last Admin: 05/07/21 10:33 Dose: 100 ml Documented by: Lactated Ringer's (Ringers, Lactated) 1,000 mls @ 100 mls/hr IV ASDIRECTED MELISSA Last Admin: 05/07/21 13:37 Dose: 100 mls/hr Documented by: Oxytocin/Lactated Ringer's (Pitocin In Lr 10 Units/1,000 Ml) 10 unit in 1,000 mls @ 12 mls/hr IV TITRATE MELISSA; Protocol Last Titration: 05/07/21 16:43 Dose: 83.33 munits/min, 500 mls/hr Documented by: Oxytocin/Lactated Ringer's (Pitocin In Lr 10 Units/1,000 Ml) 10 unit in 1,000 mls @ 100 mls/hr IV .CONTINUOUS MELISSA Nalbuphine HCl (Nalbuphine 10 Mg/1 Ml Vial) 10 mg IVPUSH Q2H PRN PRN Reason: Pain Ondansetron HCl (Ondansetron 4 Mg/2 Ml Sdv) 4 mg IVPUSH Q4H PRN PRN Reason: Nausea/Vomiting Sodium Chloride (Sodium Chloride 0.9% 10 Ml Syringe) 10 ml FLUSH ASDIRECTED PRN PRN Reason: Keep Vein Open
== END 2021-05-08 17:26 | disposition home or self-care (01) | DRG 807 ==
LOC: JD.OB 22:57 → JD.OBCHECK 22:57 → JD.OB 05-07 00:09 → JD.OBCHECK 05-07 00:47 → JD.OB 05-07 00:48 → OBSVTOIN 05-07 16:42 → JD.OB 05-07 16:43
PROVIDERS: ADMIT Obstetrics & Gynecology; ATTEND Obstetrics & Gynecology
PROC: 10E0XZZ Delivery of Products of Conception, External Approach (ICD-10-PCS; principal; 2021-05-07)
PROC: 10H07YZ Insertion of Other Device into Products of Conception, Via Natural or Artificial Opening (ICD-10-PCS; 2021-05-07)
PROC: 3E0R3BZ Introduction of Anesthetic Agent into Spinal Canal, Percutaneous Approach (ICD-10-PCS; 2021-05-07)
DX: O99.52 Diseases of the respiratory system complicating childbirth (principal); Z37.0 Single live birth; J45.909 Unspecified asthma, uncomplicated; Z20.822 Contact with and (suspected) exposure to COVID-19; Z88.1 Allergy status to other antibiotic agents; Z98.890 Other specified postprocedural states; Z3A.38 38 weeks gestation of pregnancy
CPT/HCPCS: 01967; 36415; 51702; 59025; 59409; 84112; 85025; 86592; 86850; 86900; 86901; A9270-GY; J2590; J3010; J3490; J7120; U0002

== ENCOUNTER 2023-07-20 12:14 | Inpatient (IN) | payer BC ==
[2023-07-20] MEDS ORDERED: Oxytocin/Lactated Ringers 30 UNIT/500 ML BAG IV SCH ×2 (12:30→13:00)
[2023-07-20] MEDS ORDERED: Ondansetron 4 MG/2 ML SDV IVPUSH PRN (12:47)
[2023-07-20] MEDS ORDERED: Lidocaine 1% 50 ML MDV INJECT PRN (12:47)
[2023-07-20] MEDS ORDERED: Nalbuphine HCl 10 MG/ 1ML Amp IVPUSH PRN (12:47)
[2023-07-20] MEDS ORDERED: Sodium Chloride 0.9% 10 ML Syringe FLUSH PRN (12:47)
[2023-07-20 13:09] LABS: BASOPHILS PERCENT AUTO 0.3 % (0.0-1.0); EOSINOPHILS ABSOLUTE AUTO 0.1 K/mm3 (0.0-0.4); EOSINOPHILS PERCENT AUTO 0.8 % (0.0-6.0); HEMATOCRIT 33.8 % (37.0-47.0); IMMATURE GRAN ABSOLUTE AUTO 0.06 K/mm3 (0.00-0.05); IMMATURE GRAN PERCENT AUTO 0.6 % (0.0-0.4); LYMPHOCYTES ABSOLUTE AUTO 1.7 K/mm3 (1.0-4.8); LYMPHOCYTES PERCENT AUTO 16.9 % (24.0-44.0); MEAN CORPUSCULAR HEMOGLOBIN 27.3 pg (28.0-32.0); MEAN CORPUSCULAR HGB CONC 32.5 g/dl (32.0-36.0); MEAN CORPUSCULAR VOLUME 83.9 fl (83.0-99.0); MEAN PLATELET VOLUME 9.8 fl (9.4-12.3); MONOCYTES ABSOLUTE AUTO 0.8 K/mm3 (0.0-0.8); MONOCYTES PERCENT AUTO 7.8 % (0.0-8.0); NEUTROPHILS ABSOLUTE AUTO 7.5 K/mm3 (1.8-7.7); NEUTROPHILS PERCENT AUTO 73.6 % (41.0-71.0); PLATELET COUNT,PLT 185 K/mm3 (150-400); RED BLOOD CELL COUNT 4.03 M/mm3 (4.10-5.30); WHITE BLOOD CELL COUNT,WBC 10.22 K/mm3 (3.9-11.3)
[2023-07-20] MEDS ORDERED: diphenhydrAMINE 50 MG/ML SDV IVPUSH PRN (13:46)
[2023-07-20] MEDS ORDERED: Bupivacaine/fentaNYL/NS 100 ML Bag EPIDUR PRN (13:46)
[2023-07-20] MEDS ORDERED: fentaNYL 100 MCG/2 ML SDV EPIDUR PRN (13:46)
[2023-07-20] MEDS ORDERED: ePHEDrine 50 MG/ML SDV IVPUSH PRN (13:46)
[2023-07-20] MEDS: Lactated Ringers 1,000 ML IV SCH ×3 (14:22→17:06)
[2023-07-20] MEDS ORDERED: Sodium Chloride 0.9% 10 ML Syringe FLUSH SCH (21:00)
[2023-07-21] MEDS ORDERED: Benzocaine/Menthol 20%-0.5% Spray 78 GM Cannister TOP PRN (03:57)
[2023-07-21] MEDS ORDERED: Docusate Sodium 100 MG Cap PO PRN (03:57)
[2023-07-21] MEDS ORDERED: Ibuprofen 600 MG Tab PO PRN (03:57)
[2023-07-21] MEDS ORDERED: Acetaminophen 325 MG Tab PO PRN (03:57)
[2023-07-21] MEDS ORDERED: Witch Hazel Medicated Pads 40/Jar TOP PRN (03:57)
[2023-07-21] MEDS ORDERED: Lidocaine 1% 10 ML MDV ONE (04:00)
== END 2023-07-22 09:55 | disposition home or self-care (01) | DRG 560 ==
LOC: JD.OB 12:14 → JD.OBCHECK 12:14 → JD.OB 12:47 → OBSVTOIN 07-21 02:41 → JD.OB 07-21 03:00
PROVIDERS: ADMIT Obstetrics & Gynecology; ATTEND Obstetrics & Gynecology
PROC: 10E0XZZ Delivery of Products of Conception, External Approach (ICD-10-PCS; principal; 2023-07-21)
PROC: 3E0R3BZ Introduction of Anesthetic Agent into Spinal Canal, Percutaneous Approach (ICD-10-PCS; 2023-07-21)
PROC: 00HU33Z Insertion of Infusion Device into Spinal Canal, Percutaneous Approach (ICD-10-PCS; 2023-07-21)
DX: O42.12 Full-term premature rupture of membranes, onset of labor more than 24 hours following rupture (principal); Z3A.38 38 weeks gestation of pregnancy; Z37.0 Single live birth; Z88.8 Allergy status to other drugs, medicaments and biological substances; Z91.018 Allergy to other foods
CPT/HCPCS: 36415; 51702; 59025; 59409; 85025; 86592; 86850; 86900; 86901; J3010; J3490; J7120; J7999

== ENCOUNTER 2025-06-09 04:33 | Emergency (ER) | payer BC, MEDICAID ==
[2025-06-09] MEDS ORDERED: Sodium Chloride 0.9% 10 ML Syringe FLUSH PRN (05:21)
[2025-06-09] MEDS ORDERED: Naloxone 0.4 MG/ML SDV IVPUSH PRN (05:26)
[2025-06-09] MEDS: Ondansetron 4 MG/2 ML SDV IVPUSH ONE (05:33)
[2025-06-09 05:45] LABS: BASOPHILS ABSOLUTE AUTO 0.1 K/mm3 (0.0-0.2); BASOPHILS PERCENT AUTO 0.5 % (0.0-1.0); EOSINOPHILS ABSOLUTE AUTO 0.2 K/mm3 (0.0-0.4); EOSINOPHILS PERCENT AUTO 1.5 % (0.0-6.0); IMMATURE GRAN ABSOLUTE AUTO 0.05 K/mm3 (0.00-0.05); IMMATURE GRAN PERCENT AUTO 0.4 % (0.0-0.4); LYMPHOCYTES ABSOLUTE AUTO 1.9 K/mm3 (1.0-4.8); LYMPHOCYTES PERCENT AUTO 16.6 % (24.0-44.0); MEAN PLATELET VOLUME 10.6 fl (9.4-12.3); MONOCYTES ABSOLUTE AUTO 0.9 K/mm3 (0.0-0.8); MONOCYTES PERCENT AUTO 7.6 % (0.0-8.0); NEUTROPHILS ABSOLUTE AUTO 8.5 K/mm3 (1.8-7.7); NEUTROPHILS PERCENT AUTO 73.4 % (41.0-71.0); NRBC ABSOLUTE 0.00 (0.00-0.02); NRBC PERCENT 0.0 % (0.0-0.2); PLATELET COUNT,PLT 249 K/mm3 (150-400); RED BLOOD CELL COUNT 5.41 M/mm3 (4.10-5.30); WHITE BLOOD CELL COUNT,WBC 11.62 K/mm3 (3.9-11.3)
[2025-06-09 05:46] LABS: A/G RATIO 1.1 (1-2); ALANINE AMINOTRANSFERASE,ALT 14.0 U/L (14-59); ASPARTATE AMNIOTRANSFERASE,AST 15.0 U/L (15-37); BILIRUBIN TOTAL 0.5 mg/dL (0.2-1.0); BLOOD UREA NITROGEN,BUN 7.0 mg/dL (7-18); CARBON DIOXIDE,CO2 25.0 mEq/L (21-32); CHLORIDE,CL 102.0 mEq/L (98-107); CREATININE 0.7 mg/dL (0.55-1.02); EST CRCL DRUG DOSING (CG) 89.12 mL/min; ESTIMATED GFR 121.0 mL/min (>60); GLUCOSE RANDOM 118.0 mg/dL (70-99); POTASSIUM,K 3.5 mEq/L (3.5-5.1); PROTEIN TOTAL,TP 8.3 g/dl (6.4-8.2); SODIUM,NA 139.0 mEq/L (136-145)
[2025-06-09 05:49] LABS: LACTIC ACID 1.6 mmol/L (0.4-2.0)
[2025-06-09] MEDS: Iopamidol 612 MG/ML 100 ML Bottle IVPUSH ONE (06:02)
[2025-06-09 06:36] LABS: APPEARANCE,URINE CLOUDY (Clear); GLUCOSE,URINE NEGATIVE (Negative); OCCULT BLOOD,URINE 3+ (Negative)
[2025-06-09] MEDS: cefTRIAXone 1 GM in Water For Injection, Sterile 10 ML IVPUSH ONE (07:18)
== END 2025-06-09 07:41 | disposition home or self-care (01) ==
LOC: JD.ED 04:33
DX: N39.0 Urinary tract infection, site not specified (principal); Z88.1 Allergy status to other antibiotic agents; Z91.018 Allergy to other foods; Z79.899 Other long term (current) drug therapy
CPT/HCPCS: 36415; 74177; 76705; 80053; 81001; 83605; 83690; 84703; 85025; 87086; 87088; 87186; 96361; 96374; 96375; 99284; J0696; J2270; J2405; J7030; Q9967